=== PATIENT | female | born 1965 | race Caucasian/White ===

== ENCOUNTER 2021-08-10 10:17 | Outpatient (REF) | payer BC, SELFPAY ==
[2021-08-10 11:13] LABS: MANUAL DIFF FLAG NO
[2021-08-10 11:19] LABS: Basophils Absolute Auto 0.1 X10*3/uL (0.0-0.2); Eosinophils Absolute Auto 0.1 X10*3/uL (0.0-0.4); Eosinophils Percent Auto 2.4 % (0-4); Hematocrit 43.9 % (37.0-47.0); Hemoglobin 14.4 g/dl (12.0-16.0); Imm Gran Abs Auto 0.01 X10*3/uL (0.00-0.03); Imm Gran Pct Auto 0.2 % (0.0-0.4); Lymphocytes Absolute Auto 1.5 X10*3/uL (1.2-4.9); Mean Corpuscular HGB Conc 32.8 g/dl (31.0-35.0); Mean Corpuscular Hemoglobin 31.8 pg (27.0-33.0); Mean Corpuscular Volume 96.9 fL (80.0-98.0); Mean Platelet Volume 8.6 fL (9.4-12.3); Monocytes Absolute Auto 0.5 X10*3/uL (0.1-1.2); Monocytes Percent Auto 9.9 % (2-11); Neutrophils Absolute Auto 2.8 x10*3/uL (2.0-8.3); Neutrophils Percent Auto 55.5 % (45-73); Platelet Count 260 X10*3/uL (160-400); Red Blood Count 4.53 X10*6/uL (4.20-5.50); Red Cell Distribution Width 12.6 % (11.0-16.0)
[2021-08-10 12:21] LABS: Erythrocyte Sedimentation Rate 7 MM/HR (0-20)
[2021-08-12 18:22] LABS: IgA 145 mg/dL (47-310); IgG 743 mg/dL (600-1640); IgM 77 mg/dL (50-300)
== END 2021-08-10 10:18 | disposition home or self-care (01) ==
LOC: HO.LAB 10:17
PROVIDERS: PCP Internal Medicine; Visit Provider Hospitalist
DX: J44.9 Chronic obstructive pulmonary disease, unspecified (principal); F17.210 Nicotine dependence, cigarettes, uncomplicated; Z85.3 Personal history of malignant neoplasm of breast; Z01.82 Encounter for allergy testing
CPT/HCPCS: 36415; 82784; 82785; 85025; 85652; 86003

== ENCOUNTER 2021-09-14 13:50 | Outpatient (REF) | payer BC, SELFPAY ==
--- NOTE | 2021-09-14 15:15 | PFT_ITS ---
FLOWS: FEV1 55% of predicted at 1.42 L. FVC 97% of predicted at 3.14 L. FEV1 to FVC ratio of 0.45. Positive bronchodilator response. LUNG VOLUMES: Total lung capacity 122% of predicted at 5.80 L. Residual volume 171% of predicted at 3.02 L. Slow vital capacity 92% of predicted at 2.78 L. Expiratory reserve volume 129% of predicted at 1.16 L. Diffusion capacity is moderately decreased. IMPRESSION: Moderate obstructive ventilatory defect with positive bronchodilator response. Increased total lung capacity suggests hyperinflation. Increased residual volume suggests air trapping. Decreased diffusion capacity suggests emphysema. MD JESS Kamara/MODL / [id number]
== END 2021-09-14 13:51 | disposition home or self-care (01) ==
LOC: HO.RESP 13:50
PROVIDERS: PCP Internal Medicine; Visit Provider Hospitalist
DX: J44.9 Chronic obstructive pulmonary disease, unspecified (principal); R06.00 Dyspnea, unspecified; F17.200 Nicotine dependence, unspecified, uncomplicated
CPT/HCPCS: 94060; 94727; 94729

== ENCOUNTER 2021-09-18 15:02 | Outpatient (REF) | payer BC, SELFPAY ==
--- NOTE | ~2021-09-18 | CT_ITS ---
EXAMINATION: CT CHEST SCREENING CLINICAL INFORMATION: Smoker, 37 pack years. COMPARISON: None. TECHNIQUE: Multidetector volumetric CT imaging of the chest is performed without contrast using low dose technique. Additional 2D coronal and sagittal reformatted images and axial 3D maximum intensity projection (MIP) images are generated on the CT workstation. This CT examination was performed using dose optimization techniques as appropriate, variously including the following: *Automated exposure control *Adjustment of mA and/or kV according to patient size (this includes techniques or standardized protocols for targeted exams where dose is matched to indication/reason for exam; i.e. extremities or head) *Use of iterative reconstruction technique DLP: 34 mGy-cm. FINDINGS: LUNGS: The lungs are hyperinflated without acute process. There is a 2 mm nodule right upper lobe anterior segment image 61/6, 5 mm ground-glass nodule/density right upper lobe anterior medial segment. There are focal atelectatic changes in the lingula. Minimal atelectatic changes are seen in the lingula. MEDIASTINUM: The heart size is normal. The great vessels are normal caliber. Central trachea and the bronchi are widely patent. No abnormal size mediastinal or hilar lymph nodes seen. There is no pericardial effusion. PLEURA: There is no pleural effusion. No pleural mass or thickening. AXILLA: There are surgical sutures in the right axilla from previous intervention. Small lymph nodes are seen in the left axilla. UPPER ABDOMEN: Visualized liver, spleen, pancreas and bilateral adrenal glands are markable. There is tumor stone in the upper pole right kidney. OSSEOUS STRUCTURES: No lytic or sclerotic process seen. CT/CT lung screening IMPRESSION: Small 2 mm nodule right upper lobe and 5 mm ground-glass nodule right upper lobe could be atelectasis. ASSESSMENT: Lung-RADS category 2: Benign. RECOMMENDATION: Low-dose annual CT chest exam.
== END 2021-09-18 15:03 | disposition home or self-care (01) ==
LOC: HO.CT 15:02
PROVIDERS: PCP Internal Medicine; Visit Provider Physician Assistant Medical
DX: Z12.2 Encounter for screening for malignant neoplasm of respiratory organs (principal); F17.210 Nicotine dependence, cigarettes, uncomplicated
CPT/HCPCS: 71271; G0296

== ENCOUNTER → 2021-09-28 13:43 | Outpatient (BNVA) | payer BC, SELFPAY | PROVIDERS: PCP Internal Medicine; Visit Provider Hospitalist | DX: J44.9 Chronic obstructive pulmonary disease, unspecified (principal) ==

== ENCOUNTER → 2022-02-11 10:27 | Outpatient (BNVA) | payer BC, SELFPAY | PROVIDERS: PCP Internal Medicine; Visit Provider Hospitalist | DX: J44.1 Chronic obstructive pulmonary disease with (acute) exacerbation (principal); R91.8 Other nonspecific abnormal finding of lung field; U07.1 COVID-19 | CPT/HCPCS: 94618 ==

== ENCOUNTER → 2022-04-21 08:51 | Outpatient (BNVA) | payer BC, SELFPAY | PROVIDERS: PCP Internal Medicine; Visit Provider Hospitalist | DX: J44.9 Chronic obstructive pulmonary disease, unspecified (principal); R91.8 Other nonspecific abnormal finding of lung field | CPT/HCPCS: 94618 ==

== ENCOUNTER 2022-04-29 08:51 | Outpatient (REF) | payer BC, SELFPAY ==
--- NOTE | ~2022-04-29 | CT_ITS ---
EXAMINATION: CT CHEST WITHOUT CONTRAST CLINICAL INFORMATION: Abnormal lung findings. COMPARISON: None TECHNIQUE: Multidetector volumetric CT imaging of the chest was done. Axial MIP volume rendering provided. Sagittal and coronal reformatted images were obtained. This CT examination was performed using dose optimization techniques as appropriate, variously including the following: *Automated exposure control *Adjustment of mA and/or kV according to patient size (this includes techniques or standardized protocols for targeted exams where dose is matched to indication/reason for exam; i.e. 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 LUNGS: There is centrilobular emphysema with ill-defined opacities right lung apex, axial image 75/6, 85/6, 87/6, 97/6. 2 mm nodular density right upper lobe, image 75/6. 5 mm nodule right upper lobe, axial image 133/6. A few ill-defined opacities in both upper lobes, axial image 144/6. A stellate-appearing 6 mm nodules right lower lobe superior segment, images 140/6 and 146/6. Subpleural reticular stranding right upper lobe, image , and several subcentimeter nodules in the lower lobes. There is bronchial wall thickening without bronchiectasis in both lower lobes. No acute consolidation seen. Mild atelectatic changes are seen in both lung bases MEDIASTINUM: The thyroid lobes are symmetric and normal. The central trachea and the bronchi are widely patent. Heart size and the great vessels are normal caliber. No pericardial effusion seen. No abnormal size mediastinal or hilar lymph nodes. CORONARY ARTERY CALCIFICATION: None visualized on this study. PLEURA: There is no pleural effusion. No pleural mass or thickening. AXILLA: Small shotty lymph nodes seen in bilateral axilla with surgical cheyenne in the right axilla from previous intervention. UPPER ABDOMEN: Visualized liver, spleen are unremarkable. There is solitary 4 mm radiopaque calculi, upper pole right kidney. OSSEOUS STRUCTURES: No aggressive lytic or sclerotic process seen. CT/CT chest wo IV con IMPRESSION: 1. Centrilobular emphysema with ill-defined opacities in both upper lobes and several nodules in the lower lobes. There is bronchial wall thickening without bronchiectasis in both lower lobes. Findings are suggestive of inflammatory or infectious etiology. There are at least 2 stellate-appearing nodules in the right lower lobe superior segment. In addition, there are several additional ill-defined nodules and densities in both upper lobes and superior segment of right lower lobe in addition to subcentimeter nodules. Several ill-defined bilateral upper lobe densities and 2 stellate nodules in the right upper lobe have developed in the interim compared to 09/18/2021 CT chest exam. Inflammatory or infectious etiologies are suspected suspected. 2. No abnormal mediastinal or axillary lymph nodes seen. 3. Nonobstructive 4 mm radiopaque calculi upper pole right kidney. Fleischner guidelines were followed.
== END 2022-04-29 08:52 | disposition home or self-care (01) ==
LOC: HO.CT 08:51
PROVIDERS: PCP Internal Medicine; Visit Provider Hospitalist
DX: R91.8 Other nonspecific abnormal finding of lung field (principal)
CPT/HCPCS: 71250

== ENCOUNTER → 2022-07-12 09:32 | Outpatient (REF) | payer BC, SELFPAY ==
--- NOTE | 2022-07-12 10:13 | ECG_ITS ---
Test Reason : copd Blood Pressure : / mmHG Vent. Rate : 059 BPM Atrial Rate : 059 BPM P-R Int : 144 ms QRS Dur : 100 ms QT Int : 428 ms P-R-T Axes : 077 076 073 degrees QTc Int : 423 ms Sinus bradycardia Possible Left atrial enlargement Incomplete right bundle branch block Minimal voltage criteria for LVH, may be normal variant ( Erich product ) Borderline ECG No previous ECGs available Referred By: Luis Cloud Electronically Signed By:KATHLEEN ALARCON MD
== END ==
LOC: HO.CARD 09:32
PROVIDERS: PCP Internal Medicine; Visit Provider Hospitalist
DX: J44.9 Chronic obstructive pulmonary disease, unspecified (principal); K21.9 Gastro-esophageal reflux disease without esophagitis
CPT/HCPCS: 93005

== ENCOUNTER 2022-09-23 07:23 | Outpatient (REF) | payer BC, SELFPAY ==
--- NOTE | ~2022-09-23 | CT_ITS ---
EXAMINATION: CT CHEST WITHOUT CONTRAST CLINICAL INFORMATION: Pulmonary nodule. Abnormal lung findings. COMPARISON: CT chest 04/29/2022. TECHNIQUE: Multidetector volumetric CT imaging of the chest was done. Axial MIP volume rendering provided. Sagittal and coronal reformatted images were obtained. This CT examination was performed using dose optimization techniques as appropriate, variously including the following: *Automated exposure control *Adjustment of mA and/or kV according to patient size (this includes techniques or standardized protocols for targeted exams where dose is matched to indication/reason for exam; i.e. 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 LUNGS: There is centrilobular emphysema with bilateral apical pleural thickening and parenchymal scarring. There are small pulmonary nodules. A 3 mm nodule right lung apex image 100/5, stable. Previously seen ill-defined opacities right lung apex have resolved. Previously visualized ill-defined parenchymal opacities in both upper lobes anterior segment have resolved as well. There is fine subpleural reticular interstitial thickening right upper lobe anterior segment, stable. No acute consolidation or mass seen. There is a 3 mm nodule left lower lobe axial image 546/5. There is intrabronchiolar 2 mm nodule/debris right middle lobe axial image 33/3. 2 mm calcified nodule is seen left lower lobe axial image 556/5. MEDIASTINUM: The thyroid lobes are symmetric and normal. The central trachea and the bronchi are widely patent. Heart size and the great vessels are normal caliber. There is no pericardial effusion. No abnormal-sized mediastinal or hilar lymph nodes seen. CORONARY ARTERY CALCIFICATION: None visualized on this study. PLEURA: There is no pleural effusion. No pleural mass or thickening. AXILLA: Small shotty lymph nodes are seen in bilateral axilla. There are small cheyenne in the right axilla likely from lymph node dissection. UPPER ABDOMEN: Visualized liver appears unremarkable. Punctate stones in the upper pole right kidney. Spleen, adrenal glands unremarkable. OSSEOUS STRUCTURES: Unremarkable. CT/CT chest wo IV con IMPRESSION: 1. Centrilobular emphysema with bilateral apical pleural thickening and parenchymal scarring. 2. Previously seen ill-defined parenchymal opacities in both upper lobes have resolved. 3. There are small pulmonary nodules measuring 3 mm and less in size. There is a 2 mm intrabronchiolar nodule/debris in the right middle lobe. 4. No abnormal mediastinal or axillary lymph nodes seen. 5. Punctate nonobstructive stones upper pole right kidney. 6. Lung-RADS category 2: Benign. Fleischner guidelines were followed.
== END 2022-09-23 07:24 | disposition home or self-care (01) ==
LOC: HO.CT 07:23
PROVIDERS: PCP Internal Medicine; Visit Provider Hospitalist
DX: R91.8 Other nonspecific abnormal finding of lung field (principal)
CPT/HCPCS: 71250

== ENCOUNTER → 2022-10-05 14:49 | Outpatient (BNVA) | payer BC, SELFPAY | PROVIDERS: PCP Internal Medicine; Visit Provider Nurse Practitioner Family ==

== ENCOUNTER → 2022-10-18 09:50 | Outpatient (BNVA) | payer BC, SELFPAY | PROVIDERS: PCP Internal Medicine; Visit Provider Hospitalist | DX: J44.9 Chronic obstructive pulmonary disease, unspecified (principal); K21.9 Gastro-esophageal reflux disease without esophagitis ==

== ENCOUNTER 2023-02-01 09:35 | Outpatient (REF) | payer BC, SELFPAY | END 2023-02-01 09:36 | disposition home or self-care (01) | LOC: HO.RESP 09:35 | PROVIDERS: PCP Internal Medicine; Visit Provider Hospitalist | DX: J44.9 Chronic obstructive pulmonary disease, unspecified (principal) ==

== ENCOUNTER 2023-03-07 10:03 | Outpatient (AMB) | payer BC, SELFPAY ==
[2023-03-07 10:09] VITALS: BP 128/64; PULSE 67; O2SAT 96; BMI 17.9
--- NOTE | 2023-03-07 10:09 | MHC.OFFVIS ---
Intake Vital Signs 03/07/23 10:09 Height 5 ft 2 in Weight 98 lb BMI 17.9 BP 128/64 Blood Pressure Location Lt brachial Position Sitting Pulse 67 Pulse Source Pulse Oximeter Pulse Oximetry (%) 96 Oxygen Delivery Method Room Air Intake Visit Reasons: copd Dandy Tender Required: No Allergies diazepam [From Valium] Allergy (Severe, Verified 03/07/23 10:11) Hallucinations HPI HPI Comments History of Present Illness Details The patient is a 57-year-old woman current smoker with a history of breast cancer many years ago and also family history positive for lung cancer. The patient is developing worsening cough and shortness of breath. She has been on Trelegy inhaler with partial improvement of the symptoms. She does have a productive cough. Moderate severity. She feels the albuterol is not working. On further questioning she does states that she had asthma as a child. Patient also had allergies. Will assess for a potential asthma phenotype which may respond better to that therapy. However, she understands that she also needs to quit smoking. Will go ahead and refer her to the lung cancer screening program. The patient is interested in quitting however she knows she is going to be very hard for her. She has had bad reactions to medications in the past. This point the patient is willing to start bupropion in addition to starting any controller inhaler hopefully this covered in order for her to provide herself with some nicotine supplementation. Will continue to monitor closely. Will have her undergo pulmonary function studies them follow-up with her after that. 09/29/2021 the patient is here for a pulmonary follow-up visit. Overall she is doing a little better. Still having shortness of breath with activity. Also has a cough. Productive in nature. She still struggling with smoking. She knows she needs to quit. She has been on the Wellbutrin. She is willing to try the nicotine patch along with the Wellbutrin to see if she has a better chance of quitting completely. We did look at her pulmonary function studies still demonstrating moderate to severe COPD. In addition to that significant air trapping. The patient did have a CT scan of the chest to the lung cancer screening program that we also reviewed. She does have multiple pulmonary nodules. She also has significant emphysema. 01/27/2022 the patient has a telehealth visit today. Patient developed COVID-19. Apparently she started developing a worsening cough and chest congestion sometime last week. She did test negative for COVID at that time. She continued having symptoms and finally and son that she tested positive. She went to an urgent care and she was started on Paxlovid. She is on day for now and she is tolerating it fairly well. Although now she is complaining of sinus congestion with postnasal drip and also productive cough with white phlegm. She feels like she has a hard time expectorating. She has been using her nebulizer and also her rescue medication regularly. She continues on a maintenance inhalers as well. It is likely the patient's developing exacerbation or COPD due to the viral syndrome. However, she understands that will trying to avoid prednisone while on the antiviral medication. Therefore will have her start doxycycline to treat her for postviral sinusitis and bronchitis. When she completes the packs of it and she still having difficulties she can start the prednisone. She is monitoring closely her oxygen. Her pulse ox does drop to the low 90s with activity. However, quickly comes up which is reassuring. The patient is aware of her oxygen drops to below 90% and persistent that she has to go to the ER. 02/11/2022 the patient is here for pulmonary follow-up visit. The patient has been having shortness of breath and tachycardia after having COVID. She did take the antibiotics to treat for postviral bacterial infection. She was initially evaluated back in the 14 min subsequently went to an urgent care because of worsening symptoms. The patient now has been struggling with her breathing. Therefore we had her undergo a 6 minute walk test. The patient did not qualify for oxygen although she did desaturate down to the low 90s. The patient was very symptomatic. On examination the patient does have some expiratory wheezing and chest tightness. I did recommend that she take a prednisone as prescribed. She should do well in her breathing should improve with prednisone. I did provide her with a letter to that work until she can not to the prednisone course. In meantime she is going to continue with respiratory therapy in continues to nebulized therapy. 04/21/2022 the patient is here for pulmonary follow-up visit. Overall the patient is feeling a little better. She did have brief 6 minutes walk test prior to the visit in the patient no longer qualifies for oxygen. This is very reassuring. Her oxygen levels are indeed better. However she does complaint of chest congestion and mucus production. Her cough is moderate severity. She has partially responded to the inhalers. She is no longer on prednisone. Will go ahead and start her on macrolide suppression therapy. the patient still working on her smoking. Her last CT scan was back in September 2021 demonstrating benign pulmonary nodules. She is scheduled to have a repeat CT scan September 2022. will follow-up in 6 months. 07/12/2022 the patient is here for a pulmonary follow-up visit. The azithromycin has been working for her. Her cough is improved. She would like to continue it for now. She will need to get an EKG. Still having difficulties with smoking. She did try the Wellbutrin although not very successful. The patient was able to be little bit more successful Chantix in the past. She is willing to go back on it. The patient is willing to go back on Chantix. I will send a prescription to the pharmacy. She should start with started pack. She is to watch closely for any will changes specially depression. We did again review her CT scan that she had back in April demonstrating new pulmonary nodules bilaterally ill-defined. The patient will need a repeat CT scan 6 months from that 1. 10/18/2022 the patient is here for pulmonary follow-up visit. She finished a course of prednisone and also doxycycline for bronchitis and COPD exacerbation. She is starting to feel better. Although she is not completely better. She does have a planned trip to [place]. Therefore I will make sure to give her additional prednisone and doxycycline in case her symptoms worsen again. I am hopeful however that in due time her symptoms go back to her baseline. She is using her respiratory medications. His smoking cessation is going well on Chantix. I will send a prescription to the pharmacy at this time. We did review her CT scan of the chest demonstrating stable findings she with stable pulmonary nodules and some degree of emphysema. No significant findings noted. She will have a repeat CT scan in a year's time. She is wondering about the lung volume reduction interventions. I will request PFTs for the next visit in the fall of 2022 to assess her lung volume and air trapping in order to consider her for lung volume reduction interventions. 03/07/2023 the patient is here for pulmonary follow-up visit. Overall patient is doing a little better. Continues use the Trelegy daily. She is back on the azithromycin 3 times a week for chronic bronchitis. Still has some shortness of breath and congestion. Moderate severity. The respiratory therapy has been helpful. She is still struggling with smoking. She is on Chantix. She is trying to cut down further. We did review her recent PFTs. It looks like she still has moderate to severe obstruction. When compared to 2021 there is some tried improvements in both the FEV1 and also decreasing her surgery volumes are less air trapping which is reassuring. [facility] Medical History (Updated 01/27/22 @ 09:13 by Luis Cloud MD) Pulmonary nodules History of breast cancer Personal history of nicotine dependence Asthma-COPD overlap syndrome Surgical History (Updated 09/18/21 @ 14:53 by Gloria Wang PA-C) History of tonsillectomy History of hysteroscopy History of cardiac radiofrequency ablation History of lumpectomy of right breast History of bilateral oophorectomy (~2019) Family History (Updated 09/18/21 @ 15:01 by Gloria Wang PA-C) Sister Lung cancer, Onset Age: 57 Maternal Grandfather Lung cancer Maternal Uncle Lung cancer Social History Patient Tobacco Use Status: Current everyday Tobacco user Tobacco use type: Cigarette Years Smoked: (onset 15, x 40yrs, max 2ppd, mainly 1/2-3/4ppd - 30pyh) Review of Systems Const Denies chills, Denies excessive sweating, Denies fever(s), Denies headache(s) and Denies night sweats Eyes Denies dry eyes, Denies irritation and Denies itchy eyes ENT Reports Normal hearing present and Denies headache(s) Card Denies chest pain, Denies chest pain at rest, Denies chest pain with activity, Denies leg edema and Reports dyspnea on exertion Resp Reports chest congestion, Reports cough, Denies hemoptysis, Denies excessive phlegm production, Denies pain on inspiration, Denies pain with cough, Reports dyspnea on exertion, Denies stridor and Reports wheezing Musc Denies myalgias Neuro Reports Normal hearing present and Denies headache(s) Endo Denies excessive sweating Magdaleno/Lymph Denies lymphadenopathy Aller/Immun Denies itchy eyes, Denies seasonal rhinorrhea and Reports wheezing Physical Exam Vital Signs: Last Vital Signs Pulse 67 03/07/23 10:09 BP 128/64 03/07/23 10:09 Pulse Ox 96 03/07/23 10:09 Oxygen Delivery Method Room Air 03/07/23 10:09 BMI result Body Mass Index 17.9 Const General: alert Neck Neck: Yes normal visual inspection, Yes full ROM and Yes no lymphadenopathy Chest Chest palpation & inspection: normal inspection of the chest Resp Auscultation: no rhonchi, no wheezes and diminished lung sounds Cardio Rate: regular rate Rhythm: regular rhythm Heart sounds: S1 normal heart sound present and S2 normal heart sound present GI Palpation (GI): Soft to palpation and nontender Auscultation: normal bowel sounds Skin General skin exam: rashes and/or lesions noted Neuro Cranial nerves: Yes Normal hearing present Assessment & Plan Assessment & Plan (1) Asthma-COPD overlap syndrome: Code(s): J44.9 - Chronic obstructive pulmonary disease, unspecified (2) Pulmonary nodules: Code(s): R91.8 - Other nonspecific abnormal finding of lung field Plan restart Azithromycin MWF till February and will reassess continue Trelegy inhaler SOHAIL as needed Nebulizer with albuterol as needed Tobacco cessation: on Chantix lung cancer screening program 09/2023 follow-up in 4-6 months Medications: New azithromycin Take 1 tablet on Tuesday/Tuesday/Tuesday 250 mg PO 3XW 28 days 12 tabs 6RF K21.9 - Gastro-esophageal reflux disease without esophagitis Refilled albuterol sulfate 90 mcg/actuation 2 inhalations inhalation Q6H 30 days PRN 18 grams 12RF shortness of breath or wheezing J44.9 - Chronic obstructive pulmonary disease, unspecified varenicline (Chantix) 1 mg PO BID 28 days 56 tabs 4RF [id number] 200-62.5-25 mcg (Trelegy Ellipta) 1 inh inhalation DAILY 30 days 60 ea 12RF Coding Level of Care Code Est Pt Level 4 (87161) Diagnoses Asthma-COPD overlap syndrome J44.9 Pulmonary nodules R91.8 Time Spent (min) 17
== END 2023-03-07 10:35 | disposition home or self-care (01) ==
PROVIDERS: PCP Internal Medicine; Visit Provider Hospitalist
DX: J44.9 Chronic obstructive pulmonary disease, unspecified (principal); R91.8 Other nonspecific abnormal finding of lung field
CPT/HCPCS: 99214

== ENCOUNTER → 2023-03-07 10:03 | Outpatient (BNVA) | payer BC, SELFPAY | PROVIDERS: PCP Internal Medicine; Visit Provider Hospitalist ==

== ENCOUNTER 2023-06-08 09:52 | Outpatient (AMB) | payer BC, SELFPAY ==
[2023-06-08 09:57] VITALS: BP 128/70; PULSE 64; O2SAT 95; BMI 18.5
--- NOTE | 2023-06-08 09:57 | A.OFFVIS_ITS ---
Intake Vital Signs 06/08/23 09:57 Height 5 ft 2 in Weight 101 lb BMI 18.5 BP 128/70 Blood Pressure Location Lt brachial Position Sitting Pulse 64 Pulse Source Pulse Oximeter Pulse Oximetry (%) 95 Oxygen Delivery Method Room Air Intake Visit Reasons: copd Search Specialist Required: No Allergies diazepam [From Valium] Allergy (Severe, Verified 06/08/23 09:59) Hallucinations HPI HPI Comments History of Present Illness Details The patient is a 57-year-old woman current smoker with a history of breast cancer many years ago and also family history positive for lung cancer. The patient is developing worsening cough and shortness of breath. She has been on Trelegy inhaler with partial improvement of the symptoms. She does have a productive cough. Moderate severity. She feels the albuterol is not working. On further questioning she does states that she had asthma as a child. Patient also had allergies. Will assess for a potential asthma phenotype which may respond better to that therapy. However, she understands that she also needs to quit smoking. Will go ahead and refer her to the lung cancer screening program. The patient is interested in quitting however she knows she is going to be very hard for her. She has had bad reactions to medications in the past. This point the patient is willing to start bupropion in addition to starting any controller inhaler hopefully this covered in order for her to provide herself with some nicotine supplementation. Will continue to monitor closely. Will have her undergo pulmonary function studies them follow-up with her after that. 09/29/2021 the patient is here for a pulmonary follow-up visit. Overall she is doing a little better. Still having shortness of breath with activity. Also has a cough. Productive in nature. She still struggling with smoking. She knows she needs to quit. She has been on the Wellbutrin. She is willing to try the nicotine patch along with the Wellbutrin to see if she has a better chance of quitting completely. We did look at her pulmonary function studies still demonstrating moderate to severe COPD. In addition to that significant air trapping. The patient did have a CT scan of the chest to the lung cancer screening program that we also reviewed. She does have multiple pulmonary nodules. She also has significant emphysema. 01/27/2022 the patient has a telehealth v isit today. Patient developed COVID-19. Apparently she started developing a worsening cough and chest congestion sometime last week. She did test negative for COVID at that time. She continued having symptoms and finally and son that she tested positive. She went to an urgent care and she was started on Paxlovid. She is on day for now and she is tolerating it fairly well. Although now she is complaining of sinus congestion with postnasal drip and also productive cough with white phlegm. She feels like she has a hard time expectorating. She has been using her nebulizer and also her rescue medication regularly. She continues on a maintenance inhalers as well. It is likely the patient's developing exacerbation or COPD due to the viral syndrome. However, she understands that will trying to avoid prednisone while on the antiviral medication. Therefore will have her start doxycycline to treat her for postviral sinusitis and bronchitis. When she completes the packs of it and she still having difficulties she can start the prednisone. She is monitoring closely her oxygen. Her pulse ox does drop to the low 90s with activity. However, quickly comes up which is reassuring. The patient is aware of her oxygen drops to below 90% and persistent that she has to go to the ER. 02/11/2022 the patient is here for pulmo arnoly follow-up visit. The patient has been having shortness of breath and tachycardia after having COVID. She did take the antibiotics to treat for postviral bacterial infection. She was initially evaluated back in the 14 min subsequently went to an urgent care because of worsening symptoms. The patient now has been struggling with her breathing. Therefore we had her undergo a 6 minute walk test. The patient did not qualify for oxygen although she did desaturate down to the low 90s. The patient was very symptomatic. On examination the patient does have some expiratory wheezing and chest tightness. I did recommend that she take a prednisone as prescribed. She should do well in her breathing should improve with prednisone. I did provide her with a letter to that work until she can not to the prednisone course. In meantime she is going to continue with respiratory therapy in continues to nebulized therapy. 04/21/2022 the patient is here for pulmonary follow-up visit. Overall the patient is feeling a little better. She did have brief 6 minutes walk test prior to the visit in the patient no longer qualifies for oxygen. This is very reassuring. Her oxygen levels are indeed better. However she does complaint of chest congestion and mucus production. Her cough is moderate severity. She has partially responded to the inhalers. She is no longer on prednisone. Will go ahead and start her on macrolide suppression therapy. the patient still working on her smoking. Her last CT scan was back in September 2021 demonstrating benign pulmonary nodules. She is scheduled to have a repeat CT scan September 2022. will follow-up in 6 months. 07/12/2022 the patient is here for a pulm onary follow-up visit. The azithromycin has been working for her. Her cough is improved. She would like to continue it for now. She will need to get an EKG. Still having difficulties with smoking. She did try the Wellbutrin although not very successful. The patient was able to be little bit more successful Chantix in the past. She is willing to go back on it. The patient is willing to go back on Chantix. I will send a prescription to the pharmacy. She should start with started pack. She is to watch closely for any will changes specially depression. We did again review her CT scan that she had back in April demonstrating new pulmonary nodules bilaterally ill-defined. The patient will need a repeat CT scan 6 months from that 1. 10/18/2022 the patient is here for pulmona ry follow-up visit. She finished a course of prednisone and also doxycycline for bronchitis and COPD exacerbation. She is starting to feel better. Although she is not completely better. She does have a planned trip to [place]. Therefore I will make sure to give her additional prednisone and doxycycline in case her symptoms worsen again. I am hopeful however that in due time her symptoms go back to her baseline. She is using her respiratory medications. His smoking cessation is going well on Chantix. I will send a prescription to the pharmacy at this time. We did review her CT scan of the chest demonstrating stable findings she with stable pulmonary nodules and some degree of emphysema. No significant findings noted. She will have a repeat CT scan in a year's time. She is wondering about the lung volume reduction interventions. I will request PFTs for the next visit in the fall of 2022 to assess her lung volume and air trapping in order to consider her for lung volume reduction interventions. 03/07/2023 the patient is here for pulmo naraman follow-up visit. Overall patient is doing a little better. Continues use the Trelegy daily. She is back on the azithromycin 3 times a week for chronic bronchitis. Still has some shortness of breath and congestion. Moderate severity. The respiratory therapy has been helpful. She is still struggling with smoking. She is on Chantix. She is trying to cut down further. We did review her recent PFTs. It looks like she still has moderate to severe obstruction. When compared to 2021 there is some tried improvements in both the FEV1 and also decreasing her surgery volumes are less air trapping which is reassuring. 06/08/2023 the patient is here for a pulm onary follow-up visit. She has had wor sening respiratory symptoms for the last few weeks. She had a viral syndrome and after that she started developing a productive cough. She continues on the azithromycin but does not seem to be very helpful. She is also noticed increased wheezing. She has been using her respiratory inhalers more often. The patient unfortunately continues to smoke cigarettes. She was not Chantix but she has been on and off. We talked about the importance for her to quit smoking altogether. In addition to that she is participating in the lung cancer screening program. Next CT scans going to be sometime in the spring of 2023. If the patient is no better she will call the office for further evaluation likely and chest x-ray. [facility] Medical History (Updated 01/27/22 @ 09:13 by Luis Cloud MD) Pulmonary nodules History of breast cancer Personal history of nicotine dependence Asthma-COPD overlap syndrome Surgical History (Updated 09/18/21 @ 14:53 by Gloria Wang PA-C) History of tonsillectomy History of hysteroscopy History of cardiac radiofrequency ablation History of lumpectomy of right breast History of bilateral oophorectomy (~2019) Family History (Updated 09/18/21 @ 15:01 by Gloria Wang PA-C) Sister Lung cancer, Onset Age: 57 Maternal Grandfather Lung cancer Maternal Uncle Lung cancer Social History Patient Tobacco Use Status: Current everyday Tobacco user Tobacco use type: Cigarette Years Smoked: (onset 15, x 40yrs, max 2ppd, mainly 1/2-3/4ppd - 30pyh) Review of Systems Const Denies chills, Denies excessive sweating, Denies fever(s), Denies headache(s) and Denies night sweats Eyes Denies dry eyes, Denies irritation and Denies itchy eyes ENT Reports Normal hearing present and Denies headache(s) Card Denies chest pain, Denies chest pain at rest, Denies chest pain with activity, Denies leg edema and Reports dyspnea on exertion Resp Reports change in phlegm color, Reports chest congestion, Reports cough, Denies hemoptysis, Denies excessive phlegm production, Denies pain on inspiration, Denies pain with cough, Reports dyspnea on exertion, Denies stridor and Reports wheezing Musc Denies myalgias Neuro Reports Normal hearing present and Denies headache(s) Endo Denies excessive sweating Magdaleno/Lymph Denies lymphadenopathy Aller/Immun Denies itchy eyes, Denies seasonal rhinorrhea and Reports wheezing Physical Exam Vital Signs: Last Vital Signs Pulse 64 06/08/23 09:57 BP 128/70 06/08/23 09:57 Pulse Ox 95 06/08/23 09:57 Oxygen Delivery Method Room Air 06/08/23 09:57 BMI result Body Mass Index 18.5 Const General: alert Neck Neck: Yes normal visual inspection, Yes full ROM and Yes no lymphadenopathy Chest Chest palpation & inspection: normal inspection of the chest Resp Auscultation: rhonchi, wheezes and diminished lung sounds Cardio Rate: regular rate Rhythm: regular rhythm Heart sounds: S1 normal heart sound present and S2 normal heart sound present GI Palpation (GI): Soft to palpation and nontender Auscultation: normal bowel sounds Skin General skin exam: rashes and/or lesions noted Neuro Cranial nerves: Yes Normal hearing present Assessment & Plan Assessment & Plan (1) Asthma-COPD overlap syndrome: Code(s): J44.9 - Chronic obstructive pulmonary disease, unspecified (2) Pulmonary nodules: Code(s): R91.8 - Other nonspecific abnormal finding of lung field Plan hold Azithromycin MWF till February and will reassess Doxy x 10 days Medrol pack pack if pack continue Trelegy inhaler SOHAIL as needed Nebulizer with albuterol as needed Tobacco cessation: on Chantix lung cancer screening program 09/2023 follow-up in 4-6 months Medications: New methylprednisolone (Medrol (Chris)) PO PER PKG DIR 6 days 21 ea 0RF Coding Level of Care Code Est Pt Level 4 (95749) Diagnoses Asthma-COPD overlap syndrome J44.9 Pulmonary nodules R91.8 Time Spent (min) 17
== END 2023-06-08 10:23 | disposition home or self-care (01) ==
PROVIDERS: PCP Internal Medicine; Visit Provider Hospitalist
DX: J44.9 Chronic obstructive pulmonary disease, unspecified (principal); R91.8 Other nonspecific abnormal finding of lung field
CPT/HCPCS: 99214

== ENCOUNTER → 2023-06-08 09:52 | Outpatient (BNVA) | payer BC, SELFPAY | PROVIDERS: PCP Internal Medicine; Visit Provider Hospitalist | DX: J44.9 Chronic obstructive pulmonary disease, unspecified (principal); K21.9 Gastro-esophageal reflux disease without esophagitis ==

== ENCOUNTER 2023-10-11 15:26 | Outpatient (REF) | payer BC, SELFPAY ==
--- NOTE | ~2023-10-11 | CT_ITS ---
EXAMINATION: CT LOW-DOSE SCREENING CHEST WITHOUT CONTRAST CLINICAL INFORMATION: Nicotine dependence, cigarettes, uncomplicated. The patient is a current smoker with a 30 pack-year history of smoking. COMPARISON: Multiple prior CT scans of the chest, the most recent of which is dated 09/23/2022 and the most remote of which is dated 09/18/2021. TECHNIQUE: Multidetector volumetric CT imaging of the chest is performed on a Siemens SOMATOM Perspective scanner without contrast using low dose technique. Additional 2D coronal and sagittal reformatted images and axial 3D maximum intensity projection (MIP) images are generated on the CT workstation. This CT examination was performed using dose optimization techniques as appropriate, variously including the following: *Automated exposure control *Adjustment of mA and/or kV according to patient size (this includes techniques or standardized protocols for targeted exams where dose is matched to indication/reason for exam; i.e. extremities or head) *Use of iterative reconstruction technique TOTAL EXAM DLP: 74 mGy-cm. CTDIvol: 1.72 mGy. FINDINGS: PULMONARY NODULES No suspicious pulmonary nodules. The largest single true nodule is in the left lower lobe measuring 4 mm and is unchanged (4:456, compare prior 5:544). There is also a 3 mm left upper lobe lung nodule is unchanged (4:125, compare prior 5:154). [place] images of all have been saved. No new, increasing sized or suspicious nodule is seen. There are some pulmonary opacities seen that represent some mural thickening of underlying cysts (for example, right apex 4:61, left apex 4:54 and superior segment right lower lobe 4:228). These findings are unchanged compared to prior. LUNGS: Lungs bilaterally symmetrically expanded. There are marked emphysematous changes seen along with mild diffuse bronchial thickening. No effusion or pneumothorax. Central airways patent. MEDIASTINUM: No mediastinal, hilar or axillary adenopathy or free fluid collection. CORONARY ARTERY CALCIFICATION: None visualized on this study. THYROID GLAND: Unremarkable to the extent seen. CARDIOVASCULAR STRUCTURES: Aortic and heart size normal. No pericardial effusion. CHEST WALL/AXILLA: Unremarkable. UPPER ABDOMEN: There is right sided nephrolithiasis with the largest stone measuring 3 mm in size at 75 Hounsfield units. This has increased in size from prior and is 4.6 cm from the posterior axillary line Included portions of the solid organs in the upper abdomen otherwise unremarkable on noncontrast imaging. OSSEOUS STRUCTURES: No suspicious focal findings. CT/CT lung screening IMPRESSION: 1. No evidence of pulmonary malignancy. 2. Marked emphysema. 3. Right-sided nephrolithiasis. 4. Incidental findings (S category): No significant new incidental findings. ASSESSMENT: Lung-RADS Category 2: Benign appearance or behavior of nodules. RECOMMENDATION: Continued routine annual low-dose CT lung screening in 1 year is recommended. An order for CT CHEST LOW DOSE CANCER SCREENING ([id number]) can be placed.
== END 2023-10-11 15:27 | disposition home or self-care (01) ==
LOC: HO.CT 15:26
PROVIDERS: PCP Internal Medicine; Visit Provider Physician Assistant Medical
DX: Z12.2 Encounter for screening for malignant neoplasm of respiratory organs (principal); F17.210 Nicotine dependence, cigarettes, uncomplicated
CPT/HCPCS: 71271

== ENCOUNTER 2023-10-19 10:24 | Outpatient (AMB) | payer BC, SELFPAY ==
--- NOTE | 2023-10-19 10:28 | A.OFFVIS_ITS ---
Vital Signs 10/19/23 10:29 Height 5 ft 2 in Weight 97 lb 0.054 oz BMI 17.7 BP 124/60 Blood Pressure Location Lt brachial Position Sitting Pulse 86 Pulse Source Pulse Oximeter Pulse Oximetry (%) 94 Oxygen Delivery Method Room Air Intake Visit Reasons: copd Alfalfa Dehydrator Operator Required: No Allergies diazepam [From Valium] Allergy (Severe, Verified 10/19/23 10:32) Hallucinations HPI Comments Details: The patient is a 57-year-old woman current smoker with a history of breast cancer many years ago and also family history positive for lung cancer. The patient is developing worsening cough and shortness of breath. She has been on Trelegy inhaler with partial improvement of the symptoms. She does have a productive cough. Moderate severity. She feels the albuterol is not working. On further questioning she does states that she had asthma as a child. Patient also had allergies. Will assess for a potential asthma phenotype which may respond better to that therapy. However, she understands that she also needs to quit smoking. Will go ahead and refer her to the lung cancer screening program. The patient is interested in quitting however she knows she is going to be very hard for her. She has had bad reactions to medications in the past. This point the patient is willing to start bupropion in addition to starting any controller inhaler hopefully this covered in order for her to provide herself with some nicotine supplementation. Will continue to monitor closely. Will have her [facility] pulmonary function studies them follow-up with her after that. 03/07/2023 the patient is here for pulmonary follow-up visit. Overall patient is doing a little better. Continues use the Trelegy daily. She is back on the azithromycin 3 times a week for chronic bronchitis. Still has some shortness of breath and congestion. Moderate severity. The respiratory therapy has been helpful. She is still struggling with smoking. She is on Chantix. She is trying to cut down further. We did review her recent PFTs. It looks like she still has moderate to severe obstruction. When compared to 2021 there is some tried improvements in both the FEV1 and also decreasing her surgery volumes are less air trapping which is reassuring. 06/08/2023 the patient is here for a pulmonary follow-up visit. She has had worsening respiratory symptoms for the last few weeks. She had a viral syndrome and after that she started developing a productive cough. She continues on the azithromycin but does not seem to be very helpful. She is also noticed increased wheezing. She has been using her respiratory inhalers more often. The patient unfortunately continues to smoke cigarettes. She was not Chantix but she has been on and off. We talked about the importance for her to quit smoking altogether. In addition to that she is participating in the lung cancer screening program. Next CT scans going to be sometime in the spring. If the patient is no better she will call the office for further evaluation likely and chest x-ray. 10/19/2023 the patient is here for a pulmonary follow-up visit. The patient has been struggling with cough and shortness breath. Seems to be getting worse. She has been on a course of doxycycline and had been on azithromycin before. She does have chronic bronchitis due to her COPD. Moderate severity. She did have a lung cancer screening program CT scan. I did review with her seems that the nodules are stable although she does have extensive emphysema. The patient still smoking however. She is on Chantix and is helping partially. Still smoking a half a pack a day. Her also smokes that makes it very hard for her to quit altogether. She is struggling work because she has missing a lot of work because of respiratory symptoms. I did fill out her [facility] papers. [facility] Medical History (Updated 09/06/23 @ 08:54 by Gloria Wang PA-C) History of breast cancer Asthma-COPD overlap syndrome Pulmonary nodules Nicotine dependence, cigarettes, uncomplicated Surgical History (Updated 09/18/21 @ 14:53 by Gloria Wang PA-C) History of tonsillectomy History of hysteroscopy History of cardiac radiofrequency ablation History of lumpectomy of right breast History of bilateral oophorectomy (~2019) Family History (Updated 09/18/21 @ 15:01 by Gloria Wang PA-C) Sister Lung cancer, Onset Age: 57 Maternal Grandfather Lung cancer Maternal Uncle Lung cancer Social History Patient Tobacco Use Status: Current everyday Tobacco user Tobacco use type: Cigarette Years Smoked: (onset 15, x 40yrs, max 2ppd, mainly 1/2-3/4ppd - 30pyh) Review of Systems Const Denies chills, Denies excessive sweating, Denies fever(s), Denies headache(s) and Denies night sweats Eyes Denies dry eyes, Denies irritation and Denies itchy eyes ENT Reports Normal hearing present and Denies headache(s) Card Denies chest pain, Denies chest pain at rest, Denies chest pain with activity, Denies leg edema and Reports dyspnea on exertion Resp Reports chest congestion, Reports cough, Denies hemoptysis, Denies excessive phlegm production, Denies pain on inspiration, Denies pain with cough, Reports dyspnea on exertion, Denies stridor and Reports wheezing Musc Denies myalgias Neuro Reports Normal hearing present and Denies headache(s) Endo Denies excessive sweating Magdaleno/Lymph Denies lymphadenopathy Aller/Immun Denies itchy eyes, Denies seasonal rhinorrhea and Reports wheezing Physical Exam Vital Signs: Last Vital Signs Pulse 86 10/19/23 10:29 BP 124/60 10/19/23 10:29 Pulse Ox 94 10/19/23 10:29 Oxygen Delivery Method Room Air 10/19/23 10:29 BMI result Body Mass Index 17.7 Const General: alert Neck Neck: Yes normal visual inspection, Yes full ROM and Yes no lymphadenopathy Chest Chest palpation & inspection: normal inspection of the chest Resp Auscultation: rhonchi, wheezes and diminished lung sounds Cardio Rate: regular rate Rhythm: regular rhythm Heart sounds: S1 normal heart sound present and S2 normal heart sound present GI Palpation (GI): Soft to palpation and nontender Auscultation: normal bowel sounds Skin General skin exam: rashes and/or lesions noted Neuro Cranial nerves: Yes Normal hearing present Assessment & Plan Assessment & Plan (1) Asthma-COPD overlap syndrome: Code(s): J44.9 - Chronic obstructive pulmonary disease, unspecified Category: Medical (2) Pulmonary nodules: Code(s): R91.8 - Other nonspecific abnormal finding of lung field Category: Medical Plan Azithromycin MWF continue Trelegy inhaler SOHAIL as needed Nebulizer with albuterol as needed Tobacco cessation: on Offline [employer] lung cancer screening program 09/2023 awaiting final read bloodwork follow-up in 4-6 months Orders: Orders Alpha 1 Anti-trypsin Today J44.9 - Chronic obstructive pulmonary disease, unspecified Venous Blood Gas Today J44.9 - Chronic obstructive pulmonary disease, unspecified Erythrocyte Sedimentation Rate Today J44.9 - Chronic obstructive pulmonary disease, unspecified Basic Metabolic Panel Today J44.9 - Chronic obstructive pulmonary disease, unspecified Complete Blood Count Auto Diff Today J44.9 - Chronic obstructive pulmonary disease, unspecified Coding Level of Care Code Est Pt Level 4 (04932) Diagnoses Asthma-COPD overlap syndrome J44.9 Pulmonary nodules R91.8 Time Spent (min) 18
[2023-10-19 10:29] VITALS: BP 124/60; PULSE 86; O2SAT 94; BMI 17.7
== END 2023-10-19 11:00 | disposition home or self-care (01) ==
PROVIDERS: PCP Internal Medicine; Visit Provider Hospitalist
DX: J44.9 Chronic obstructive pulmonary disease, unspecified (principal); R91.8 Other nonspecific abnormal finding of lung field
CPT/HCPCS: 99214

== ENCOUNTER → 2023-10-19 10:24 | Outpatient (BNVA) | payer BC, SELFPAY | PROVIDERS: PCP Internal Medicine; Visit Provider Hospitalist | DX: J44.9 Chronic obstructive pulmonary disease, unspecified (principal); K21.9 Gastro-esophageal reflux disease without esophagitis ==

== ENCOUNTER 2024-04-25 09:58 | Outpatient (AMB) | payer BC, SELFPAY ==
[2024-04-25 10:03] VITALS: BP 104/64; PULSE 101; O2SAT 97; BMI 18.1
--- NOTE | 2024-04-25 10:03 | MHC.OFFVIS ---
Vital Signs 04/25/24 10:03 Height 5 ft 2 in Weight 99 lb 3.328 oz BMI 18.1 BP 104/64 Blood Pressure Location Lt brachial Position Sitting Pulse 101 H Pulse Oximetry (%) 97 Oxygen Delivery Method Simple Mask Intake Visit Reasons: COPD Case Reviewer Required: No Manager Payroll: Manager Payroll offered & declined Accompanied by: Self / Same As Patient Allergies diazepam [From Valium] Allergy (Severe, Verified 04/25/24 10:06) Hallucinations Medication List - Last Reconciled 04/25/24 by Estela Batista LPN albuterol sulfate 90 mcg/actuation (Ventolin HFA) 2 inhalations inhalation Q6H PRN 30 days anastrozole 1 mg PO DAILY azithromycin 250 mg PO 3XW 28 days cholecalciferol (vitamin D3) 50 mcg PO DAILY fluticasone propionate 50 mcg/actuation 2 sprays intranasal DAILY jtzrivawjki-mjljoppoj-hemjeyhz 200-62.5-25 mcg (Trelegy Ellipta) 1 inh inhalation DAILY 30 days ipratropium-albuterol 0.5 mg-3 mg(2.5 mg base)/3 mL 3 mL inhalation BID 30 days nebulizers As directed varenicline (Chantix) 1 mg PO BID 28 days HPI Comments Details: The patient is a 58-year-old woman current smoker with a history of breast cancer many years ago and also family history positive for lung cancer. The patient is developing worsening cough and shortness of breath. She has been on Trelegy inhaler with partial improvement of the symptoms. She does have a productive cough. Moderate severity. She feels the albuterol is not working. On further questioning she does states that she had asthma as a child. Patient also had allergies. Will assess for a potential asthma phenotype which may respond better to that therapy. However, she understands that she also needs to quit smoking. Will go ahead and refer her to the lung cancer screening program. The patient is interested in quitting however she knows she is going to be very hard for her. She has had bad reactions to medications in the past. This point the patient is willing to start bupropion in addition to starting any controller inhaler hopefully this covered in order for her to provide herself with some nicotine supplementation. Will continue to monitor closely. Will have her undergo pulmonary function studies them follow-up with her after that. 03/07/2023 the patient is here for pulmonary follow-up visit. Overall patient is doing a little better. Continues use the Trelegy daily. She is back on the azithromycin 3 times a week for chronic bronchitis. Still has some shortness of breath and congestion. Moderate severity. The respiratory therapy has been helpful. She is still struggling with smoking. She is on Chantix. She is trying to cut down further. We did review her recent PFTs. It looks like she still has moderate to severe obstruction. When compared to 2021 there is some tried improvements in both the FEV1 and also decreasing her surgery volumes are less air trapping which is reassuring. 06/08/2023 the patient is here for a pulmonary follow-up visit. She has had worsening respiratory symptoms for the last few weeks. She had a viral syndrome and after that she started developing a productive cough. She continues on the azithromycin but does not seem to be very helpful. She is also noticed increased wheezing. She has been using her respiratory inhalers more often. The patient unfortunately continues to smoke cigarettes. She was not Chantix but she has been on and off. We talked about the importance for her to quit smoking altogether. In addition to that she is participating in the lung cancer screening program. Next CT scans going to be sometime in the spring. If the patient is no better she will call the office for further evaluation likely and chest x-ray. 10/19/2023 the patient is here for a pulmonary follow-up visit. The patient has been struggling with cough and shortness breath. Seems to be getting worse. She has been on a course of doxycycline and had been on azithromycin before. She does have chronic bronchitis due to her COPD. Moderate severity. She did have a lung cancer screening program CT scan. I did review with her seems that the nodules are stable although she does have extensive emphysema. The patient still smoking however. She is on Chantix and is helping partially. Still smoking a half a pack a day. Her also smokes that makes it very hard for her to quit altogether. She is struggling work because she has missing a lot of work because of respiratory symptoms. I did [place] out her [place] papers. 04/25/2024 the patient is here for she was diagnosed with bladder cancer. She does have a port now will start chemotherapy. Hopefully she can get course of chemotherapy and then have surgery. In the meantime she did have a CT scan of the chest done at [facility] in 05/04/2024. She did bring a copy. I did review with her. . The images were also reviewed. I did compare the images to the once the CT scan she had in 10/03/2023 here. The pulmonary nodules appear to be stable when compared to 2023. She does have moderate degree of emphysema. Also has some evidence of bronchitis and areas of atelectasis. She has developing worsening cough chest congestion. Will go ahead and switch over to doxy for 10-14 days to treat her for bronchitis. If she is no better she will call for further evaluation. She continue with the Trelegy inhaler. She is working on cutting down her smoking. Hopeful that she can quit completely. [facility] Medical History (Updated 04/25/24 @ 19:37 by Luis Cloud MD) Bladder cancer History of breast cancer Asthma-COPD overlap syndrome Pulmonary nodules Nicotine dependence, cigarettes, uncomplicated Surgical History (Updated 09/18/21 @ 14:53 by Gloria Wang PA-C) History of tonsillectomy History of hysteroscopy History of cardiac radiofrequency ablation History of lumpectomy of right breast History of bilateral oophorectomy (~2019) Family History (Updated 09/18/21 @ 15:01 by Gloria Wang PA-C) Sister Lung cancer, Onset Age: 57 Maternal Grandfather Lung cancer Maternal Uncle Lung cancer Social History (Updated 04/25/24 @ 10:08 by Estela Batista LPN) Patient Tobacco Use Status: Current everyday Tobacco user Tobacco use type: Cigarette Cigarettes Per Day: 12 Years Smoked: (onset 15, x 40yrs, max 2ppd, mainly 1/2-3/4ppd - 30pyh) Review of Systems Const Denies chills, Denies excessive sweating, Denies fever(s), Denies headache(s) and Denies night sweats Eyes Denies dry eyes, Denies irritation and Denies itchy eyes ENT Reports Normal hearing present and Denies headache(s) Card Denies chest pain, Denies chest pain at rest, Denies chest pain with activity, Denies leg edema and Reports dyspnea on exertion Resp Reports chest congestion, Reports cough, Denies hemoptysis, Denies excessive phlegm production, Denies pain on inspiration, Denies pain with cough, Reports dyspnea on exertion, Denies stridor and Reports wheezing Reports as per HPI Musc Denies myalgias Neuro Reports Normal hearing present and Denies headache(s) Endo Denies excessive sweating Magdaleno/Lymph Denies lymphadenopathy Aller/Immun Denies itchy eyes, Denies seasonal rhinorrhea and Reports wheezing Physical Exam Vital Signs: Last Vital Signs Pulse 101 H 04/25/24 10:03 BP 104/64 04/25/24 10:03 Pulse Ox 97 04/25/24 10:03 Oxygen Delivery Method Simple Mask 04/25/24 10:03 BMI result Body Mass Index 18.1 Const General: alert Neck Neck: Yes normal visual inspection, Yes full ROM and Yes no lymphadenopathy Chest Chest palpation & inspection: normal inspection of the chest Resp Auscultation: no rhonchi, no wheezes and diminished lung sounds Cardio Rate: regular rate Rhythm: regular rhythm Heart sounds: S1 normal heart sound present and S2 normal heart sound present GI Palpation (GI): Soft to palpation and nontender Auscultation: normal bowel sounds Skin General skin exam: rashes and/or lesions noted Neuro Cranial nerves: Yes Normal hearing present Assessment & Plan Assessment & Plan (1) Asthma-COPD overlap syndrome: Code(s): J44.9 - Chronic obstructive pulmonary disease, unspecified Category: Medical (2) Pulmonary nodules: Code(s): R91.8 - Other nonspecific abnormal finding of lung field Category: Medical (3) Bladder cancer: Code(s): C67.9 - Malignant neoplasm of bladder, unspecified Category: Medical (4) Nicotine dependence, cigarettes, uncomplicated: Comment: (onset 15yo, x 40yrs, mainly 1/2-3/4ppd, max 2ppd for 7yr - 30pyh, +fam hx lung ca) Code(s): F17.210 - Nicotine dependence, cigarettes, uncomplicated Category: Medical Plan Doxycycline continue Trelegy inhaler SOHAIL as needed Nebulizer with albuterol as needed Tobacco cessation: Chantix lung cancer screening program (had a CT chest at [facility] 04/2024) next 04/2025 follow-up in 4-6 months Medications: New doxycycline monohydrate 100 mg PO BID 28 tabs 0RF 14 days Coding Level of Care Code Est Pt Level 4 (47078) Complex EM visit Add On G2211 Diagnoses Asthma-COPD overlap syndrome J44.9 Pulmonary nodules R91.8 Bladder cancer C67.9 Nicotine dependence, cigarettes, uncomplicated F17.210 Time Spent (min) 18
--- OUTSIDE RECORDS SUMMARY | 2024-04-25 23:57 | XMS_ITS | Continuity of Care Document ---
Author Organization [facility] ter Address [address] [place] [id number] Support Name Relationship Address Phone ANGELA GARCIA P P Personal Relationship Unknown Unavailable GARCIA, ANGELA Personal Relationship Unknown Amparo vailable GARCIA, MARK spouse Unknown Unavailable GARCIA, ANGELA Personal Relationship Unknown Amparo vailable GARCIA, ANGELA P P Personal Relationship Unknown Unavailable GARCIA, ANGELA P Personal Relationship Unknown U navbridgerable RADHA, MARK Personal Relationship Unknown Unavai labboby GARCIA, ANGELA P P Personal Relationship Unknown Unavailable GARCIA, ANGELA P Personal Relationship Unknown U navailable GARCIA, ANGELA P Personal Relationship Unknown U navailable GARCIA, ANGELA P P Personal Relationship Unknown Unavailable GARCIA, MARK spouse Unknown Unavailable GARCIA, ANGELA P P Personal Relationship Unknown Unavailable GARCIA, ANGELA P P Personal Relationship Unknown Unavailable SOLA ALEXIS mother Unknown Unavailab boby GARCIA MARK P spouse Unknown Unavailable GARCIA, ANGELA Personal Relationship Unknown Amparo vailable GARCIA, ANGELA P P Personal Relationship Unknown Unavailable GARCIA, ANGELA P P Personal Relationship Unknown Unavailable RADHA, MARIANNA Personal Relationship Unknown Unavai emanuel GARCIA, MARK Personal Relationship Unknown Unavai lable Care Team Providers 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 Role Phone Tobi Griffith MD Primary Care Phys[id number] Date(s): [facility]/19/24 - 04/19/[address] [id number] Discharge Disposition: A-D/C Home Attending Physician: Marshal Oneil MD Admitting Physician: Marshal Oneil MD Referring Physician: Marshal Oneil MD Encounter Type: Disch Daystay Allergies, Adverse Reactions, Alerts Substance Criticality Severity Reaction Reaction Severity Status Valium with high doses(10mgs)-agitation Active Medications albuterol 90 mcg/inh inhalation powder 2 puffs, Inhalation, Every 6 hours, PRN Wheezing/Shortness of Breath, Maintenance, 01/08/24 8:25:00 AM EDT, Partial fill upon patient request if the prescription is for a schedule II opioid drug. Start Date: 01/08/24 Status: Ordered Repeat number: 1 anastrozole 1 mg oral tablet 1 tablet = 1 mg, By Mouth, Daily, # 90 tablet, 3 Refills, Maintenance, 04/03/24 11:32:00 AM EST, Tablet, [id number], Partial fill upon patient request if the prescription is for a schedule IIopioid drug., 155.2, cm, 04/03/24 10:43:00 EST, Height, 43.2, kg, 04/03/24 10:43:00 EST, Dry Weight Start Date: 04/03/24 Status: Ordered Quantity: 90.0 Unit: tablet Repeat number: 4 Trelegy Ellipta 200 mcg-62.5 mcg-25 mcg/inh inhalation powder 1 puffs, Inhalation, Daily, Maintenance, 01/08/24 8:24:00 AM EDT, Partial fill upon patient request if the prescription is for a schedule II opioid drug. Start Date: 01/08/24 Status: Ordered Repeat number: 1 Problem List Condition Confirmation Course Effective Dates Status Health St atus Informant Atrial fibrillation Confirmed Active COPD - Chronic obstructive pulmonary disease Confirmed Active Breast cancer Confirmed Active Tobacco abuse Confirmed Active Underweight Confirmed Active Results Radiology Reports * Exam Date Time Procedure Performing Provider Status 04/19/24 9:55 AM IR End of Case Report Aut h (Verified) IR End of Case Report * Exam Date Time Procedure Performing Provider Status 04/19/24 9:55 AM IR Portacath Insertion Au th (Verified) Notes: (IR Portacath Insertion) Reason For Exam: Other: IR Portacath Insertion Patient: ANGELA GARCIA Study Date: 04/19/2024 Performing: Violet Steen MD Referring: : 1965 Age: 58 Gender: FEMALE Pre-procedure diagnosis and Indication: 58-year-old female with past medical history of atrial fibrillation, history of breast cancer (2017 status post right lumpectomy in 2018 and whole breast radiation therapy which was completed in 2018 currently on anastrozole), COPD and tobacco use who developed gross hematuria in February 2023. She has undergone TURBT in January 2024 for poorly differentiated urothelial carcinoma with glandular differentiation. She has been evaluated by hematology oncology for chemotherapy and is referred to interventional radiology for chest port placement. PROCEDURE: The procedure, risks, including technical failure, bleeding, infection, vessel injury, blood clot, arrhythmia, and alternatives were discussed with the patient and all questions were answered. Written informed consent obtained. Accompanying paperwork was verified for accuracy. Directed history and physical exam performed prior to the procedure. Medication reconciliation performed by nursing personnel. Procedure was performed using a cap, sterile gown, sterile gloves, a large sterile sheet, hand hygiene and 2% chlorhexidine for cutaneous antisepsis. The patient was brought to the angiography suite, positioned supine on the table and secured with arm boards. The right neck and chest were prepped and draped in usual sterile fashion. A critical pause was performed with assisting personnel just prior to the procedure with the patient's identity confirmed using 2 identifiers, confirming site and side. Conscious Sedation was administered under my supervision, with cardiorespiratory monitoring performed by independent and qualified nursing personnel. Ultrasound was used to demonstrate a patent and appropriate puncture site of the right internal jugular vein, and an image was obtained and stored. 5 ml of 1% lidocaine was used for local anesthesia. A small skin incision was made with careful blunt dissection into the subcutaneous tissues. The vein was then punctured under real-time sonographic guidance. A wire was advanced in to the IVC and a peel-away sheath was placed over the wire. Attention was then turned to the anterior chest wall where the planned port pocket site and subcutaneous tunnel was anesthetized with 15 ml of 1% lidocaine with epinephrine. A 2 cm incision was then made at the upper margin of the port pocket and using careful blunt dissection, the incision was opened and the port pocket was made. The port was assembled and flushed. The port was placed within the port pocket and a tunneler was then used to tunnel the catheter from the port pocket to the neck incision site, pulling the catheter through the subcutaneous tract. The exposed end of the catheter was then trimmed to the appropriate length ( 28 cm ) and advanced through the peel-away sheath under direct fluoroscopic guidance. The peel away sheath was then removed. The catheter tip is at the superior cavoatrial junction. The port was tested with good flow and blood return. The port was then flushed with heparin per protocol. The positioning of the port was again confirmed under fluoroscopy. The port pocket incision was closed with 2-0 Vicryl sutures and tissue adhesive. The small neck incision was closed with tissue adhesive. Sterile dressings were applied. The port was not left accessed. The patient tolerated the procedure well with no immediate complication. Catheter used: Medcomp DIGNITY PORT 6.6F - Qty: 1 Each Part #: [id number] The sterile field was maintained throughout the procedure and patient tolerated the procedure well with no complications of the procedure estimated blood loss was minimal Specimens/samples: no specimens or samples were sent for this procedure Patient transferred to, Pre / Post Procedure Unit Post procedure instructions sent in envelope with the patient Impression: Ultrasound and fluoroscopically guided placement of a power injectable chest port via the right internal jugular vein with the catheter tip terminating at the SVC/RA junction. Port available for immediate use. Access the port using sterile technique including use of sterile gloves, alcohol-based skin preparation and face mask/ shield.Should port malfunction develop please contact this service directly rather than having a diagnostic study performed elsewhere. This is not necessary. Fluoroscopy time and dose Total Fluoro Time: 0.4 mins Total dose 1 mGy Total DAP 13.4 - ?Gy/m2 No contrast was used for this procedure Local Anesthetic Lidocaine 1% 4 ml's SQ Lidocaine 1% w/ 1:100,000 epinephrine 17 ml's SQ Moderate sedation was provided From 10:27:09 to 10:51:14 Moderate Sedation Agent Dose Route Time By Fentanyl 50 mcg IV 10:27:06 LD Versed 1 mg IV 10:27:09 LD Signed By Violet Steen MD On 04/19/2024 4:24:00 PM Violet Steen MD Dictated By: Violet Steen MD Dictated Date/Time: 04/19/24 9:55 am Reviewed By: Violet Steen MD Signed By: Violet Steen MD Signed Date/Time: 04/19/24 9:55 am Transcribed By: MERLENE Transcribed Date/Time: 04/19/24 9:55 am Vital Signs Most recent to oldest [Reference Range]: 1 2 3 Height 155.2 cm (04/19/24 8:51 AM) 155.2 cm (04/19/24 8:50 AM) 155.2 cm (04/19/24 8:47 AM) Weight 43.5 kg (04/19/24 8:50 AM) 43.5 kg (04/19/24 8:47 AM) Oxygen Saturation [94-100 %] 99 % (04/19/24 8:51 AM) Pulse Rate [55-90 bpm] 86 bpm (04/19/24 8:51 AM) Blood Pressure [90-138/55-84 mm Hg] 114/69mm Hg (04/19/24 8:51 AM) Respiratory Rate [16-30 br/min] 18 br/min (04/19/24 8:51 AM) Temperature [96.8-100.4 DegF] 98.1 DegF (04/19/24 8:51 AM) Mode of Delivery (Oxygen) Room air (04/19/24 8:51 AM) Dry Weight 43.5 kg (04/19/24 8:47 AM) Social History Social History Type Response Smoking Status 10 or more cigarette s (1/2 pack or more)/day in last 30 days; Interested in cessation: No; Patient wants NRT during admission No entered on: 04/03/24 Sex Female Sex Representation Female (finding) Hospital Progress note * Nish Rico RN: SIGN, MODIFY, SIGN, MODIFY, PERFORM, SIGN, VERIFY Event Display: Progress Note Hospital Authored Date: Patient: ANGELA GARCIA Age: 58 years Sex: Female : 1965 Associated Diagnoses: None Author: Nish Rico RN Findings Evaluation Patient arrived to unit, VSS. #22 IV inserted in right AC, labs drawn. Medical daystay assessment, home med review, and pre-procedure checklist completed. Resting comfortably awaiting procedure. . * Nish Rico RN: PERFORM Event Display: Progress Note Hospital Authored Date: Returned from procedure. VSS. Dressings to right neck and right chest CDI. No signs or symptoms of bleeding or hematoma. Will continue to monitor. * Nish Rico RN: PERFORM Event Display: Progress Note Hospital Authored Date: [id number] No change to dressings, still CDI. No signs or symptoms of bleeding or hematoma. VSS. IV d/c'd. Discharge instructions reviewed and signed. Questions asked and answered. Discharged from unit via wheelchair. Note * Nish Rico RN: PERFORM Event Display: Discharge/Transfer Note Hospital Authored Date: [id number] Nursing Discharge Note Entered On: 04/19/2024 11:50 EST Performed On: 04/19/2024 11:50 EST by Nish Rico RN Nursing Discharge Note 2 Discharge Time : 04/19/2024 11:50 EST Discharge Level of Care at Discharge : Home/Assisted/Foster Care Patient Left Unit Via : Wheelchair Patient Accompanied Off Unit with : Responsible adult DC Instructions Provided & Signed by Pt : Yes Patient Understands D/C Instructions : Yes Patient Instructions Discharge Signed : Yes Did Pt have Specialty Bed or Wound Vac : No Nish Rico RN - 04/19/2024 11:50 EST Patient Care team information Care Team Personnel Name: Ann Badillo Position: [facility] Onco RN Member Role: Primary Care Nurse Name: Claudette Waldron Position: S Onco RN Member Role: Primary Care Nurse Name: Tboi Griffith MD Position: [facility] Physician - Primary Care Member Role: PCP Address: [address] [place] [address] Telecom: Name: Marcelina Beyer RN Position: S RN Member Role: Primary Care Nurse Care Team Related Persons Name: SOLA ALEXIS Name: MARK GARCIA Insurance Providers Guarantor name: ANGELA GARCIA Health Plan Information #: 1 Payer: [employer] Member Number: [id number] Policy Number: NA Group Number: [id number] Health Plan Information #: 2 Payer: [employer] Member Number: [id number] Policy Number: NA Group Number: NA
--- OUTSIDE RECORDS SUMMARY | 2024-04-25 23:57 | XMS_ITS | Continuity of Care Document ---
Author Organization [facility] ter Address [address] [place] [id number]- Support Name Relationship Address Phone RADHA ROSSANA P P Personal Relationship Unknown Unavailable BECK, ROSSANA Personal Relationship Unknown Amparo vailable BECK, MARK spouse Unknown Unavailable BECK, ROSSANA Personal Relationship Unknown Amparo vailable BECK, ROSSANA P P Personal Relationship Unknown Unavailable BECK, ROSSANA P Personal Relationship Unknown U navailable BECK, MARK Personal Relationship Unknown Unavai lable BECK, ROSSANA P P Personal Relationship Unknown Unavailable BECK, ROSSANA P Personal Relationship Unknown U navailable BECK, ROSSANA P Personal Relationship Unknown U navailable BECK, ROSSANA P P Personal Relationship Unknown Unavailable BECK, MARK spouse Unknown Unavailable BECK, ROSSANA P P Personal Relationship Unknown Unavailable BECK, ROSSANA P P Personal Relationship Unknown Unavailable SOLA ALEXIS mother Unknown Unavailab boby BECK, MARK P spouse Unknown Unavailable BECK, ROSSANA Personal Relationship Unknown Amparo vailable BECK, ROSSANA P P Personal Relationship Unknown Unavailable BECK, ROSSANA P P Personal Relationship Unknown Unavailable RADHA, MARIANNA Personal Relationship Unknown Unavai labboby BECK, MARK Personal Relationship Unknown Unavai lable Care Team Providers Care Manager Economic Name Role Phone Tobi Griffith MD Primary Care Physician Encounter 04/21/24 - 04/22/[address] [address] Attending Physician: Not on Staff, Attending MD Referring Physician: Not on Staff, Referring MD Encounter Type: [facility]RI Allergies, Adverse Reactions, Alerts Substance Criticality Severity [...] List Condition Confirmation Course Effective Dates Status [facility] Informant Atrial fibrillation Confirmed Active COPD - Chronic obstructive pulmonary disease Confirmed Active Breast cancer Confirmed Active Tobacco abuse Confirmed Active Underweight Confirmed Active Results Radiology Reports * Exam Date Time Procedure Performing Provider Status 04/21/24 1:07 PM MRI Abdomen W+W/O Contrast Auth (Verified) Notes: (MRI Abdomen W+W/O Contrast) Reason For Exam: Liver protocol;Liver protocol RESULT: MRI Abdomen W+W/O Contrast [facility] VISIT NUMBER :[id number] Patient Name: Rossana Beck Date of : 1965 Date of Exam: 04-21-2024 Referring Physician: Marshal Oneil [address] [place], [place] [address] Exam: MR Abdomen (C-/C+) CPT 68153 Room Description: [facility] 3T MR Abdomen (C-/C+) CPT 86393 CLINICAL INDICATION: Liver protocol TECHNIQUE: Multiplanar, multisequence pre and post contrast MRI evaluation of the abdomen was performed. 9 cc of Dotarem gadolinium administered intravenously. 3-D rotating maximum intensity projection MRCP images of the biliary tree were generated on the same workstation with concurrent physician supervision. COMPARISON: Multiple prior studies, most recently chest CT dated January 18, 2024. FINDINGS: LOWER THORAX: No pleural or pericardial effusion. LIVER: Normal contour and size. Normal parenchymal enhancement. No suspicious lesion. A few small T2 hyperintense nonenhancing simple cysts are noted. Ovoid region of decreased early postcontrast enhancement in the anterior superficial aspect of hepatic segment 4 spanning up to 2.4 x 1.3 cm in greatest dimension (series 1002 image 15), without correlate on precontrast imaging and subtle hypoattenuation on the initial postcontrast phase but no clear correlate on on more delayed imaging. There is a small central vessel in this region (series 1002 image 16), suggesting a perfusional variant, potentially related to vein of Sappey drainage GALLBLADDER: Tiny gallbladder polyp requires no dedicated follow-up (series 5 image 31).. BILE DUCTS: No biliary ductal dilatation. SPLEEN: Normal. PANCREAS: A few small cystic foci are noted in the pancreas, the largest in the tail measuring up to 5 and 6 mm (series 5 images 14 and 15). No pancreatic ductal dilatation. ADRENAL GLANDS: No nodules. KIDNEYS: No hydronephrosis. Kidneys enhance symmetrically. No suspicious mass. STOMACH/UPPER GI TRACT: Stomach and visualized abdominal bowel normal in caliber. PERITONEUM AND RETROPERITONEUM: No loculated fluid collection or peritoneal mass. PELVIS: Partially imaged wall thickening and enhancement involving the left posterior aspect of the bladder at the edge of the eouak-so-zwen measuring up to 2.9 cm (series 11 image 50), not definitely changed from prior MRI urogram from March 2024 on limited evaluation. LYMPH NODES: No lymphadenopathy. VESSELS: Abdominal aorta is nonaneurysmal. Hepatic, portal and splenic veins patent. Visualized inferior vena cava unremarkable. Mildly narrowed aortomesenteric interval with narrowed appearance of the left renal vein on multiple images, with retroaortic left renal vein component also appears compressed between the aorta and spine. ABDOMINAL WALL: Unremarkable. BONES: Sacral Tarlov cysts and thoracic perineural cysts are noted.. IMPRESSION: 1. Liver abnormality seen on prior CT likely represents a transient perfusional variant, potentially related to the vein of Sappey. No suspicious liver lesion. 2. Several small cystic foci in the pancreas measuring up to 6 mm without specific suspicious features, statistically sidebranch intraductal papillary mucinous neoplasms. Follow-up MRI/MRCP in one year is recommended according to current national guidelines. 3. Partially imaged bladder mass at the edge of the qysaq-ui-ujbl, not definitely changed from prior imaging. Electronically Signed By: Dennis Smith MD Dictated By: Not on Staff , OUMOU RAMÍREZ Dictated Date/Time: 04/21/24 7:42 pm Reviewed By: Not on Staff , OUMOU RAMÍREZ Signed By: Not on Staff , OUMOU RAMÍREZ Signed Date/Time: 04/21/24 7:42 pm Transcribed By: EVA Transcribed Date/Time: 04/21/24 7:42 pm Social History Social History Type Response Smoking Status 10 or more cigarette s (1/2 pack or more)/day in last 30 days; Interested in cessation: No; Patient wants NRT during admission No entered on: 04/03/24 Sex Female Sex Representation Female (finding) Patient Care team information Care Team Personnel Name: Ann Badillo Position: [facility] Onco RN Member Role: Primary Care Nurse Name: Claudette Waldron Position: S Onco RN Member Role: Primary Care Nurse Name: Tobi Griffith MD Position: [facility] Physician - Primary Care Member Role: PCP Address: [address] [place] [address] Telecom: Name: Marcelina Beyer RN Position: [facility] RN Member Role: Primary Care Nurse Care Team Related Persons Name: SOLA ALEXIS Name: MARK BECK Insurance Providers Guarantor name: ROSSANA BECK Health Plan Information #: 1 Payer: [employer] Member Number: NA Policy Number: NA Group Number: NA
--- OUTSIDE RECORDS SUMMARY | 2024-04-25 23:57 | XMS_ITS | Continuity of Care Document ---
Author Organization [facility] Address [address] [place] [address]- Support Name Relationship Address Phone ANGELA GARCIA [...] ANGELA P Personal Relationship Unknown U navailable RADHA, MARK spouse Unknown Unavailable GARCIA, ANGELA P P Personal Relationship Unknown Unavailable GARCIA, ANGELA P P Personal Relationship Unknown Unavailable SOLA ALEXIS mother Unknown Unavailab boby GARCIA, MARK P spouse Unknown Unavailable GARCIA, ANGELA Personal Relationship Unknown Amparo vailable GARCIA, ANGELA P P Personal Relationship Unknown Unavailable GARCIA, ANGELA P P Personal Relationship Unknown Unavailable RADHA, MARIANNA Personal Relationship Unknown Unavai emanuel GARCIA, MARK Personal Relationship Unknown Unavai labboby Care Team Providers Care Developer Trading Systems Name Role Phone Gladis RAMÍREZ, Tobi Puckett Primary Care Physician [place] [facility] [place] 03/31/24 [facility] [address] [place] [id number] Encounter Type: Triage Allergies, Adverse Reactions, Alerts Substance Criticality Severity [...] Daily, # 90 tablet, 3 Refills, Maintenance, 03/26/22 11:21:00 AM EST, Tablet, [facility]/pharmacy #[id number], Partial fill upon patient request if the prescription is for a schedule IIopioid drug., 157, cm, 03/26/22 9:16:00 EST, Height, 46.6, kg, 03/26/22 9:16:00 EST, Dry Weight Start Date: 03/26/22 Status: Ordered Quantity: 90.0 Unit: tablet Repeat [...] Tobacco abuse Confirmed Active Underweight Confirmed Active Social History Social History Type Response Smoking Status 10 or more cigarette s (1/2 pack or more)/day in last 30 days entered on: 01/07/24 Sex Female Sex Representation Female (finding) Patient Care team information Care Team Personnel Name: Ann Badillo Position: [facility] Onco RN Member Role: Primary Care Nurse Name: Claudette Waldron Position: S Onco RN Member Role: Primary Care Nurse Name: Tobi Griffith MD Position: [facility] Physician - Primary Care Member Role: PCP Address: [address] [place] [address] Telecom: Name: Marcelina Beyer RN Position: S RN Member Role: Primary Care Nurse Care Team Related Persons Name: SOLA ALEXIS Name: MARK GARCIA Insurance Providers Guarantor name: ANGELA GARCIA Health Plan Information #: 1 Payer: [employer] Member Number: NA Policy Number: NA Group Number: NA
--- OUTSIDE RECORDS SUMMARY | 2024-04-25 23:57 | XMS_ITS | Continuity of Care Document ---
Author Organization [facility] Address [address] [place] [address]- Care Team Providers Care Fabric Finisher Name Role Phone Tobi Griffith MD Primary Care Physician Encounter [facility] [place] 09/21/23 - 03/26/24 [facility] [address] [place] [id number] Discharge Disposition: A-D/C Home Attending Physician: Brianna Anton MD Admitting Physician: Brianna Anton MD Referring Physician: Tobi Griffith MD Allergies, Adverse Reactions, Alerts Substance Reaction Severity Status Valium with high doses(10mgs)-agitation Active Medications albuterol 90 mcg/inh inhalation powder 2 puffs, Inhalation, Every 6 hours, PRN Wheezing/Shortness of Breath, Maintenance, 01/08/24 8:25:00EDT, Partial fill upon patient request if the prescription is for a schedule II opioid drug. Start Date: 01/08/24 Status: Ordered anastrozole 1 mg oral tablet 1 tablet = 1 mg, By Mouth, Daily, # 90 tablet, 3 Refills, Maintenance, 03/26/22 11:21:00 EST, Tablet, [facility]/pharmacy #[id number], Partial fill upon patient request if the prescription is for a schedule II opioid drug., 157, cm, 03/26/22 9:16:00 EST, Height, 4... Start Date: 03/26/22 Status: Ordered Trelegy Ellipta 200 mcg-62.5 mcg-25 mcg/inh inhalation powder 1 puffs, Inhalation, Daily, Maintenance, 01/08/24 8:24:00 EDT, Partial fill upon patient request ifthe prescription is for a schedule II opioid drug. Start Date: 01/08/24 Status: Ordered Problem List Condition Confirmation Course Effective Dates Status [facility] Informant Atrial fibrillation Confirmed Active COPD - Chronic obstructive pulmonary disease Confirmed Active Breast cancer Confirmed Active Tobacco abuse Confirmed Active Underweight Confirmed Active Social History Social History Type Response Smoking Status 10 or more cigarette s (1/2 pack or more)/day in last 30 days entered on: 01/07/24 Sex Female Patient Care team information Care Team Personnel Name: Ann Badillo Position: [facility] Onco RN Member Role: Primary Care Nurse Name: Claudette Waldron Position: [facility] Onco RN Member Role: Primary Care Nurse Name: Tobi Griffith MD Position: [facility] Physician - Primary Care Member Role: PCP Address: Address: [address] [place] [id number]- Name: Marcelina Beyer RN Position: [facility] RN Member Role: Primary Care Nurse Name: Brianna Anton MD Position: [facility] Physician - Oncology Med Service: Hematology & Oncology Member Role: Admitting Physician Address: Address: [address] [place] [address] [place] [address]- Care Team Related Persons Name: SOLA ALEXIS Name: MARK GARCIA Address: home [address] [place] [id number]
== END 2024-04-25 10:27 | disposition home or self-care (01) ==
PROVIDERS: PCP Internal Medicine; Visit Provider Hospitalist
DX: J44.9 Chronic obstructive pulmonary disease, unspecified (principal); R91.8 Other nonspecific abnormal finding of lung field; C67.9 Malignant neoplasm of bladder, unspecified; F17.210 Nicotine dependence, cigarettes, uncomplicated
CPT/HCPCS: 99214

== ENCOUNTER → 2024-04-25 09:58 | Outpatient (BNVA) | payer BC, SELFPAY | PROVIDERS: PCP Internal Medicine; Visit Provider Hospitalist | DX: J44.9 Chronic obstructive pulmonary disease, unspecified (principal); K21.9 Gastro-esophageal reflux disease without esophagitis ==

== ENCOUNTER 2024-05-25 10:16 | Outpatient (AMB) | payer BC, SELFPAY ==
[2024-05-25 10:20] VITALS: BP 108/64; PULSE 72; O2SAT 97; BMI 18.9
--- NOTE | 2024-05-25 10:20 | MHC.OFFVIS ---
Vital Signs 05/25/24 10:20 Height 5 ft 2 in Weight 103 lb 9.876 oz BMI 18.9 BP 108/64 Blood Pressure Location Rt brachial Position Sitting Pulse 72 Pulse Source Pulse Oximeter Pulse Oximetry (%) 97 Oxygen Delivery Method Room Air Intake Visit Reasons: increased productive cough/shortness of breath Allergies diazepam [From Valium] Allergy (Severe, Verified 05/25/24 10:23) Hallucinations HPI Comments Details: The patient is a 58-year-old woman current smoker with a history of breast cancer many years ago and also family history positive for lung cancer. The patient is developing worsening cough and shortness of breath. She has been on Trelegy inhaler with partial improvement of the symptoms. She does have a productive cough. Moderate severity. She feels the albuterol is not working. On further questioning she does states that she had asthma as a child. Patient also had allergies. Will assess for a potential asthma phenotype which may respond better to that therapy. However, she understands that she also needs to quit smoking. Will go ahead and refer her to the lung cancer screening program. The patient is interested in quitting however she knows she is going to be very hard for her. She has had bad reactions to medications in the past. This point the patient is willing to start bupropion in addition to starting any controller inhaler hopefully this covered in order for her to provide herself with some nicotine supplementation. Will continue to monitor closely. Will have her undergo pulmonary function studies them follow-up with her after that. 03/07/2023 the patient is here for pulmonary follow-up visit. Overall patient is doing a little better. Continues use the Trelegy daily. She is back on the azithromycin 3 times a week for chronic bronchitis. Still has some shortness of breath and congestion. Moderate severity. The respiratory therapy has been helpful. She is still struggling with smoking. She is on Chantix. She is trying to cut down further. We did review her recent PFTs. It looks like she still has moderate to severe obstruction. When compared to 2021 there is some tried improvements in both the FEV1 and also decreasing her surgery volumes are less air trapping which is reassuring. 06/08/2023 the patient is here for a pulmonary follow-up visit. She has had worsening respiratory symptoms for the last few weeks. She had a viral syndrome and after that she started developing a productive cough. She continues on the azithromycin but does not seem to be very helpful. She is also noticed increased wheezing. She has been using her respiratory inhalers more often. The patient unfortunately continues to smoke cigarettes. She was not Chantix but she has been on and off. We talked about the importance for her to quit smoking altogether. In addition to that she is participating in the lung cancer screening program. Next CT scans going to be sometime in the spring. If the patient is no better she will call the office for further evaluation likely and chest x-ray. 10/19/2023 the patient is here for a pulmonary follow-up visit. The patient has been struggling with cough and shortness breath. Seems to be getting worse. She has been on a course of doxycycline and had been on azithromycin before. She does have chronic bronchitis due to her COPD. Moderate severity. She did have a lung cancer screening program CT scan. I did review with her seems that the nodules are stable although she does have extensive emphysema. The patient still smoking however. She is on Chantix and is helping partially. Still smoking a half a pack a day. Her also smokes that makes it very hard for her to quit altogether. She is struggling work because she has missing a lot of work because of respiratory symptoms. I did fill out her [facility] papers. 04/25/2024 the patient is here for she was diagnosed with bladder cancer. She does have a port now will start chemotherapy. Hopefully she can get course of chemotherapy and then have surgery. In the meantime she did have a CT scan of the chest done at [facility] in 05/04/2024. She did bring a copy. I did review with her. . The images were also reviewed. I did compare the images to the once the CT scan she had in 10/03/2023 here. The pulmonary nodules appear to be stable when compared to 2023. She does have moderate degree of emphysema. Also has some evidence of bronchitis and areas of atelectasis. She has developing worsening cough chest congestion. Will go ahead and switch over to doxy for 10-14 days to treat her for bronchitis. If she is no better she will call for further evaluation. She continue with the Trelegy inhaler. She is working on cutting down her smoking. Hopeful that she can quit completely. 05/25/2024 the patient is here for a pulmonary sick visit. Apparently she started developing worsening cough. Congested in nature. Also complaining of some back discomfort especially when coughing. It was initially pendant got a little better. Lkzc-[id number]-[id number] severity. She is congested. No significant crackles on exam. Right now she continues on chemotherapy. Once she completes her chemotherapy she is going to be reassess and likely will have surgery sometime in August. She will continue her respiratory therapy. Will place her on Augmentin. She is going to monitor closely the back discomfort. If it gets worse she will call. She recently had imaging studies in April so will hold off on additional imaging studies unless she does not respond to the Augmentin. Otherwise follow-up in August before surgery. She has any issues again she will call the office. [facility] Medical History (Updated 05/25/24 @ 10:34 by Luis Cloud MD) Bladder cancer History of breast cancer Asthma-COPD overlap syndrome Pulmonary nodules Nicotine dependence, cigarettes, uncomplicated Surgical History (Updated 09/18/21 @ 14:53 by Gloria Wang PA-C) History of tonsillectomy History of hysteroscopy History of cardiac radiofrequency ablation History of lumpectomy of right breast History of bilateral oophorectomy (~2018) Family History (Updated 09/18/21 @ 15:01 by Gloria Wang PA-C) Sister Lung cancer, Onset Age: 57 Maternal Grandfather Lung cancer Maternal Uncle Lung cancer Social History Patient Tobacco Use Status: Current everyday Tobacco user Tobacco use type: Cigarette Cigarettes Per Day: 12 Years Smoked: (onset 15, x 40yrs, max 2ppd, mainly 1/2-3/4ppd - 30pyh) Review of Systems Const Denies chills, Denies excessive sweating, Denies fever(s), Denies headache(s) and Denies night sweats Eyes Denies dry eyes, Denies irritation and Denies itchy eyes ENT Reports Normal hearing present and Denies headache(s) Card Denies chest pain, Denies chest pain at rest, Denies chest pain with activity, Denies leg edema and Reports dyspnea on exertion Resp Reports chest congestion, Reports cough, Denies hemoptysis, Denies excessive phlegm production, Denies pain on inspiration, Denies pain with cough, Reports dyspnea on exertion, Denies stridor and Reports wheezing Reports as per HPI Musc Denies myalgias Neuro Reports Normal hearing present and Denies headache(s) Endo Denies excessive sweating Magdaleno/Lymph Denies lymphadenopathy Aller/Immun Denies itchy eyes, Denies seasonal rhinorrhea and Reports wheezing Physical Exam Vital Signs: Last Vital Signs Pulse 72 05/25/24 10:20 BP 108/64 05/25/24 10:20 Pulse Ox 97 05/25/24 10:20 Oxygen Delivery Method Room Air 05/25/24 10:20 BMI result Body Mass Index 18.9 Const General: alert Neck Neck: Yes normal visual inspection, Yes full ROM and Yes no lymphadenopathy Chest Chest palpation & inspection: normal inspection of the chest Resp Auscultation: no rhonchi, no wheezes and diminished lung sounds Cardio Rate: regular rate Rhythm: regular rhythm Heart sounds: S1 normal heart sound present and S2 normal heart sound present GI Palpation (GI): Soft to palpation and nontender Auscultation: normal bowel sounds Skin General skin exam: rashes and/or lesions noted Neuro Cranial nerves: Yes Normal hearing present Extrem General: No cyanosis and No edema Assessment & Plan Assessment & Plan (1) Asthma-COPD overlap syndrome: Code(s): J44.9 - Chronic obstructive pulmonary disease, unspecified Category: Medical (2) Pulmonary nodules: Code(s): R91.8 - Other nonspecific abnormal finding of lung field Category: Medical (3) Bladder cancer: Code(s): C67.9 - Malignant neoplasm of bladder, unspecified Category: Medical Qualifiers: Bladder location: unspecified site Qualified Code(s): C67.9 - Malignant neoplasm of bladder, unspecified (4) Nicotine dependence, cigarettes, uncomplicated: Comment: (onset 15yo, x 40yrs, mainly 1/2-3/4ppd, max 2ppd for 7yr - 30pyh, +fam hx lung ca) Code(s): F17.210 - Nicotine dependence, cigarettes, uncomplicated Category: Medical Plan start Augmentin start Prednisone taper continue Trelegy inhaler SOHAIL as needed Nebulizer with albuterol as needed Tobacco cessation: [place] lung cancer screening program through [facility] follow-up in 4-6 months Medications: New amoxicillin-pot clavulanate 875-125 mg 1 tab PO BID 20 tabs 0RF 10 days prednisone PO daily; Take 2 tabs daily x 5 days, then 1 tablet daily x 5 days 15 tabs 0RF 10 days Refilled ipratropium-albuterol 0.5 mg-3 mg(2.5 mg base)/3 mL 3 mL inhalation BID 180 mL 11RF 30 days J44.9 - Chronic obstructive pulmonary disease, unspecified Coding Level of Care Code Est Pt Level 4 (76493) Diagnoses Asthma-COPD overlap syndrome J44.9 Pulmonary nodules R91.8 Malignant neoplasm of urinary bladder, unspecified site C67.9 Bladder location: unspecified site Nicotine dependence, cigarettes, uncomplicated F17.210 Time Spent (min) 16
--- OUTSIDE RECORDS SUMMARY | 2024-05-25 10:22 | XMS_ITS | Continuity of Care Document ---
Author Organization [facility] Address [address] [place] [address]- Support Name Relationship Address Phone RADHA ANGELA P P Personal Relationship Unknown Unavailable GARCIA, ANGELA Personal Relationship Unknown Amparo vailable GRACIA, MARK spouse Unknown Unavailable GARCIA, ANGELA Personal Relationship Unknown Amparo vailable GARCIA, ANGELA P P Personal Relationship Unknown Unavailable GARCIA, ANGELA P Personal Relationship Unknown U navailable GARCIA, MARK Personal Relationship Unknown Unavai lable GARCIA, ANGELA P P Personal Relationship Unknown Unavailable GARCIA, ANGELA P Personal Relationship Unknown U navailable GARCIA, ANGELA P Personal Relationship Unknown U navailable GARCIA, ANGELA P P Personal Relationship Unknown Unavailable GARCIA, MARK spouse Unknown Unavailable GARCIA, ANGELA P P Personal Relationship Unknown Unavailable GARCIA, ANGELA P P Personal Relationship Unknown Unavailable SOLA ALEXIS mother Unknown Unavailab le GARCIA, MARK P spouse Unknown Unavailable GARCIA, ANGELA Personal Relationship Unknown Amparo vailable GARCIA, ANGELA P P Personal Relationship Unknown Unavailable GARCIA, ANGLEA P P Personal Relationship Unknown Unavailable GARCIA, DAVJAYSHREE Personal Relationship Unknown Unavai lable RADHA, MARK Personal Relationship Unknown Unavai lable Care Team Providers Care Diamond Polisher Name Role Phone Tobi Griffith MD Primary Care Physician Encounter [facility] Date(s): 04/03/24 - 05/03/24 [facility] [address] [place] [id number] Encounter Type: Triage Allergies, Adverse Reactions, Alerts [...] Refills, Maintenance, 04/03/24 11:32:00 AM EST, Tablet, [facility]/pharmacy #[id number], Partial fill upon patient request if the prescription is for a schedule IIopioid drug., 155.2, cm, 04/03/24 10:43:00 EST, Height, 43.2, kg, 04/03/24 10:43:00 EST, Dry Weight Start Date: 04/03/24 Status: Ordered Quantity: 90.0 Unit: tablet Repeat number: 4 dexamethasone 4 mg oral tablet See Instructions, 2 tabs (8mg) By Mouth once a day for 3 days as directed after chemo, with food, #24 tablet, 0 Refills, Maintenance, 04/23/24 12:53:00 PM EST, [id number], Partial fill upon patient request, 155.2, cm, 04/19/24 8:51:00 EST, Height, 43.5, kg, 04/19/24 8:47:00 EST, Dry Weight Start Date: 04/23/24 Status: Ordered Quantity: 24.0 Unit: tablet Repeat number: 1 lidocaine-prilocaine 2.5%-2.5% topical cream See Instructions, apply small dollop to [facility] 1 hr prior to appt and cover with plastic, #30 Gm, 1 Refills, Maintenance, 04/24/24 11:18:00 AM EST, Cream, [facility]/pharmacy #[id number], Partial fill upon patient request if the prescription is for a schedule II opioid drug., apply small dollop to [facility] 1 hr prior to appt and cover with plastic, 155.2, cm, 04/19/24 8:51:00 EST, Height, 43.5,kg, 04/19/24 8:47:00 EST, Dry Weight Start Date: 04/24/24 Status: Ordered Quantity: 30.0 Unit: g Repeat number: 2 olanzapine 2.5 mg oral tablet 2.5 mg, 1, tablet, By Mouth, Daily at bedtime, May cause drowsiness., # 30 tablet, Refills 2, Tot. Refills 2, Maintenance, 04/23/24 12:56:00 PM EST, Route to Pharmacy Electronically, [facility]/pharmacy #[id number], Partial fill upon patient request if the prescription is for a schedule II opioid drug., 155.2, cm, 04/19/24 8:51:00 EST, Height, 43.5, kg, 04/19/24 8:47:00 EST, Dry Weight Start Date: 04/23/24 Stop Date: 07/22/24 Status: Ordered Quantity: 30.0 Unit: tablet Repeat number: 3 ondansetron 8 mg oral tablet 1 tablet = 8 mg, By Mouth, Every 8 hours, PRN as needed for nausea/vomiting, # 30 tablet, 1 Refills, Maintenance, 04/23/24 12:53:00 PM EST, Tablet, [facility]/pharmacy #[id number], Partial fill upon patient request if the prescription is for a schedule II opioid drug., 155.2, cm, 04/19/24 8:51:00 EST, Height, 43.5, kg, 04/19/24 8:47:00 EST, Dry Weight Start Date: 04/23/24 Status: Ordered Quantity: 30.0 Unit: tablet Repeat number: 2 prochlorperazine 10 mg oral tablet 1 tablet = 10 mg, By Mouth, Every 6 hours, PRN nausea/vomiting, may cause drowsiness, # 30 tablet, 1 Refills, Maintenance, 04/23/24 12:53:00 PM EST, [facility]/pharmacy #[id number], Partial fill upon patient request if the prescription is for a schedule II opioid drug., 155.2, cm, 04/19/24 8:51:00 EST, Height, 43.5, kg, 04/19/24 8:47:00 EST, Dry Weight Start Date: 04/23/24 Status: Ordered Quantity: 30.0 Unit: tablet Repeat number: 2 Trelegy Ellipta 200 mcg-62.5 mcg-25 mcg/inh inhalation [...] Care Team Personnel Name: Ann Badillo Position: [facility] Onco RN Member Role: Primary Care Nurse Name: Claudette Waldron Position: [facility] Onco RN Member Role: Primary Care Nurse Name: Tobi Griffith MD Position: [facility] Physician - Primary Care Member Role: PCP Address: [address] [place] [address] Telecom: Name: Marcelina Beyer RN Position: [facility] RN Member Role: Primary Care Nurse Care Team Related Persons Name: SOLA ALEXIS Name: MARK GARCIA Insurance Providers Guarantor name: ANGELA GARCIA Health Plan Information #: 1 Payer: [facility] E[employer] Member Number: NA Policy Number: NA Group Number: NA
--- OUTSIDE RECORDS SUMMARY | 2024-05-25 10:22 | XMS_ITS | Continuity of Care Document ---
Author Organization [facility] Address [address] [place] [address]- Support Name Relationship Address Phone GARCIA ANGELA P P Personal Relationship Unknown Unavailable [...] Unknown Unavai lable Care Team Providers Care Settlement Technician Name Role Phone Tobi Griffith MD Primary Care Physician Encounter [facility] Date(s): 03/26/24 - 04/25/24 [facility] [address] [place] [id number] Attending Physician: Laura Gan Admitting Physician: Laura Gan Referring Physician: Laura Gan Encounter Type: Triage Allergies, Adverse Reactions, Alerts [...] cream See Instructions, apply small dollop to [facility] 1 hr prior to appt and cover with plastic, #30 Gm, 1 Refills, Maintenance, 04/24/24 11:18:00 AM EST, Cream, [id number], Partial fill upon patient request if the prescription is for a schedule II opioid drug., apply small dollop to [facility] 1 hr prior to appt and cover [...] 12:56:00 PM EST, Route to Pharmacy Electronically, [facility]/pharmacy #[id number], Partial fill upon patient request if [...] Refills, Maintenance, 04/23/24 12:53:00 PM EST, Tablet, [facility]/pharmacy #[id number], Partial fill upon patient request if [...] 1 Refills, Maintenance, 04/23/24 12:53:00 PM EST, [facility]/pharmacy #[id number], Partial fill upon patient request if [...] 04/03/24 Sex Female Sex Representation Female (finding) Laboratory * Event Display: Non BH Lab Results Authored Date: * Event Display: Non BH Lab Results Authored Date: * Event Display: Non BH Lab Results Authored Date: * Event Display: Non BH Lab Results Authored Date: MG Breast Views * Event Display: MM Mammogram Authored Date: Patient Care team information Care Team Personnel Name: Ann Badillo Position: [facility] Onco RN Member Role: Primary Care Nurse Name: Claudette Waldron Position: [facility] Onco RN Member Role: Primary Care Nurse Name: Tobi Griffith MD Position: [facility] Physician - Primary Care Member Role: PCP Address: [address] [place] [address] Telecom: Name: Marcelina Beyer RN Position: [facility] RN Member Role: Primary Care Nurse Care Team Related Persons Name: SOLA ALEXIS Name: MARK GARCIA Insurance Providers Guarantor name: ANGELA GARCIA Health Plan Information #: 1 Payer: [facility] [employer] Member Number: NA Policy Number: NA Group Number: NA
== END 2024-05-25 10:43 | disposition home or self-care (01) ==
PROVIDERS: PCP Internal Medicine; Visit Provider Hospitalist
DX: J44.9 Chronic obstructive pulmonary disease, unspecified (principal); R91.8 Other nonspecific abnormal finding of lung field; C67.9 Malignant neoplasm of bladder, unspecified; F17.210 Nicotine dependence, cigarettes, uncomplicated
CPT/HCPCS: 99214

== ENCOUNTER 2024-06-26 11:17 | Outpatient (REF) | payer BC, SELFPAY | END 2024-06-26 11:18 | disposition home or self-care (01) | LOC: HO.XRAY 11:17 | PROVIDERS: PCP Specialist; Referring Provider Internal Medicine Hematology & Oncology; Visit Provider Hospitalist | DX: J44.1 Chronic obstructive pulmonary disease with (acute) exacerbation (principal) | CPT/HCPCS: 71046 ==

== ENCOUNTER → 2024-06-26 11:24 | Outpatient (BNV) | payer BC, SELFPAY | PROVIDERS: PCP Specialist; Referring Provider Internal Medicine Hematology & Oncology; Visit Provider Radiology Diagnostic Radiology | DX: J44.9 Chronic obstructive pulmonary disease, unspecified (principal) | CPT/HCPCS: 71046 ==

== ENCOUNTER 2024-08-16 09:42 | Outpatient (AMB) | payer BC, SELFPAY ==
--- NOTE | 2024-08-16 09:51 | A.OFFVIS_ITS ---
Vital Signs 08/16/24 09:52 Height 5 ft 2 in Weight 106 lb 14.787 oz BMI 19.6 BP 98/52 L Blood Pressure Location Rt brachial Position Sitting Pulse 96 Pulse Source Pulse Oximeter Pulse Oximetry (%) 96 Oxygen Delivery Method Room Air Intake Visit Reasons: COPD Allergies diazepam [From Valium] Allergy (Severe, Verified 08/16/24 09:55) Hallucinations HPI Comments Details: The patient is a 58-year-old woman current smoker with a history of breast cancer many years ago and also family history positive for lung cancer. The patient is developing worsening cough and shortness of breath. She has been on Trelegy inhaler with partial improvement of the symptoms. She does have a productive cough. Moderate severity. She feels the albuterol is not working. On further questioning she does states that she had asthma as a child. Patient also had allergies. Will assess for a potential asthma phenotype which may respond better to that therapy. However, she understands that she also needs to quit smoking. Will go ahead and refer her to the lung cancer screening program. The patient is interested in quitting however she knows she is going to be very hard for her. She has had bad reactions to medications in the past. This point the patient is willing to start bupropion in addition to starting any controller inhaler hopefully this covered in order for her to provide herself with some nicotine supplementation. Will continue to monitor closely. Will have her undergo pulmonary function studies them follow-up with her after that. 03/07/2023 the patient is here for pulmonary follow-up visit. Overall patient is doing a little better. Continues use the Trelegy daily. She is back on the azithromycin 3 times a week for chronic bronchitis. Still has some shortness of breath and congestion. Moderate severity. The respiratory therapy has been helpful. She is still struggling with smoking. She is on Chantix. She is trying to cut down further. We did review her recent PFTs. It looks like she still has moderate to severe obstruction. When compared to 2021 there is some tried improvements in both the FEV1 and also decreasing her surgery volumes are less air trapping which is reassuring. 06/08/2023 the patient is here for a pulmonary follow-up visit. She has had worsening respiratory symptoms for the last few weeks. She had a viral syndrome and after that she started developing a productive cough. She continues on the azithromycin but does not seem to be very helpful. She is also noticed increased wheezing. She has been using her respiratory inhalers more often. The patient unfortunately continues to smoke cigarettes. She was not Chantix but she has been on and off. We talked about the importance for her to quit smoking altogether. In addition to that she is participating in the lung cancer screening program. Next CT scans going to be sometime in the spring. I f the patient is no better she will call the office for further evaluation likely and chest x-ray. 10/19/2023 the patient is here for a pulmonary follow-up visit. The patient has been struggling with cough and shortness breath. Seems to be getting worse. She has been on a course of doxycycline and had been on azithromycin before. She does have chronic bronchitis due to her COPD. Moderate severity. She did have a lung cancer screening program CT scan. I did review with her seems that the nodules are stable although she does have extensive emphysema. The patient still smoking however. She is on Chantix and is helping partially. Still smoking a half a pack a day. Her also smokes that makes it very hard for her to quit altogether. She is struggling work because she has missing a lot of work because of respiratory symptoms. I did fill out her [facility] papers. 04/25/2024 the patient is here for she was diagnosed with bladder cancer. She does have a port now will start chemotherapy. Hopefully she can get course of chemotherapy and then have surgery. In the meantime she did have a CT scan of the chest done at [facility] in 05/04/2024. She did bring a copy. I did review with her. . The images were also reviewed. I did compare the images to the once the CT scan she had in 10/03/2023 here. The pulmonary nodules appear to be stable when compared to 2023. She does have moderate degree of emphysema. Also has some evidence of bronchitis and areas of atelectasis. She has developing worsening cough chest congestion. Will go ahead and switch over to doxy for 10-14 days to treat her for bronchitis. If she is no better she will call for further evaluation. She continue with the Trelegy inhaler. She is working on cutting down her smoking. Hopeful that she can quit completely. 05/25/2024 the patient is here for a pulmonary sick visit. Apparently she started developing worsening cough. Congested in nature. Also complaining of some back discomfort especially when coughing. It was initially pendant got a little better. [id number]-[id number] severity. She is congested. No significant crackles on exam. Right now she continues on chemotherapy. Once she completes her chemotherapy she is going to be reassess and likely will have surgery sometime in August. She will continue her respiratory therapy. Will place her on Augmentin. She is going to monitor closely the back discomfort. If it gets worse she will call. She recently had imaging studies in April so will hold off on additional imaging studies unless she does not respond to the Augmentin. Otherwise follow-up in August before surgery. She has any issues again she will call the office. 08/16/2024 the patient is here for a pulmonary follow-up visit. Since we spoke she did go to [place] to get her bladder cancer surgery. She did have a urostomy placed. After she was discharged the patient had to go back to the hospital with a small-bowel obstruction apparently. She did improve with conservative measures and she was able to be discharged. She had been without any cigarette smoking for a couple weeks. Unfortunately when she came back she started up again. She wants to try the nicotine patch. I will send to pharmacy. [facility] Medical History (Updated 05/25/24 @ 10:34 by Luis Cloud MD) Bladder cancer History of breast cancer Asthma-COPD overlap syndrome Pulmonary nodules Nicotine dependence, cigarettes, uncomplicated Surgical History (Updated 09/18/21 @ 14:53 by Gloria Wang PA-C) History of tonsillectomy History of hysteroscopy History of cardiac radiofrequency ablation History of lumpectomy of right breast History of bilateral oophorectomy (~2019) Family History (Updated 09/18/21 @ 15:01 by Gloria Wang PA-C) Sister Lung cancer, Onset Age: 57 Maternal Grandfather Lung cancer Maternal Uncle Lung cancer Social History Patient Tobacco Use Status: Current everyday Tobacco user Tobacco use type: Cigarette Cigarettes Per Day: 12 Years Smoked: (onset 15, x 40yrs, max 2ppd, mainly 1/2-3/4ppd - 30pyh) Review of Systems Const Denies chills, Denies excessive sweating, Denies fever(s), Denies headache(s) and Denies night sweats Eyes Denies dry eyes, Denies irritation and Denies itchy eyes ENT Reports Normal hearing present and Denies headache(s) Card Denies chest pain, Denies chest pain at rest, Denies chest pain with activity, Denies leg edema and Reports dyspnea on exertion Resp Reports chest congestion, Reports cough, Denies hemoptysis, Denies excessive phlegm production, Denies pain on inspiration, Denies pain with cough, Reports dyspnea on exertion, Denies stridor and Reports wheezing GI Reports abdominal pain Reports as per HPI Musc Denies myalgias Neuro Reports Normal hearing present and Denies headache(s) Endo Denies excessive sweating Magdaleno/Lymph Denies lymphadenopathy Aller/Immun Denies itchy eyes, Denies seasonal rhinorrhea and Reports wheezing Physical Exam Vital Signs: Last Vital Signs Pulse 96 08/16/24 09:52 BP 98/52 L 08/16/24 09:52 Pulse Ox 96 08/16/24 09:52 Oxygen Delivery Method Room Air 08/16/24 09:52 BMI result Body Mass Index 19.6 Const General: alert Neck Neck: Yes normal visual inspection, Yes full ROM and Yes no lymphadenopathy Chest Chest palpation & inspection: normal inspection of the chest Resp Auscultation: no rhonchi, no wheezes and diminished lung sounds Cardio Rate: regular rate Rhythm: regular rhythm Heart sounds: S1 normal heart sound present and S2 normal heart sound present GI Palpation (GI): Soft to palpation and nontender Auscultation: normal bowel sounds Skin General skin exam: rashes and/or lesions noted Neuro Cranial nerves: Yes Normal hearing present Extrem General: No cyanosis and No edema Assessment & Plan Assessment & Plan (1) Asthma-COPD overlap syndrome: Code(s): J44.9 - Chronic obstructive pulmonary disease, unspecified Category: Medical (2) Pulmonary nodules: Code(s): R91.8 - Other nonspecific abnormal finding of lung field Category: Medical (3) Bladder cancer: Code(s): C67.9 - Malignant neoplasm of bladder, unspecified Category: Medical Qualifiers: Bladder location: unspecified site Qualified Code(s): C67.9 - Malignant neoplasm of bladder, unspecified (4) Nicotine dependence, cigarettes, uncomplicated: Comment: (onset 15yo, x 40yrs, mainly 1/2-3/4ppd, max 2ppd for 7yr - 30pyh, +fam hx lung ca) Code(s): F17.210 - Nicotine dependence, cigarettes, uncomplicated Category: Medical Plan continue Trelegy inhaler SOHAIL as needed Nebulizer with albuterol as needed Tobacco cessation: nicotine patch start Trazodone for sleep lung cancer screening program through [facility] follow-up in 4-6 months Medications: New trazodone 50 mg PO BEDTIME PRN 30 tabs 6RF sleep 30 days nicotine 1 patch transdermal DAILY 28 ea 2RF 28 days Coding Level of Care Code Est Pt Level 4 (03347) Complex EM visit Add On G2211 Diagnoses Asthma-COPD overlap syndrome J44.9 Pulmonary nodules R91.8 Malignant neoplasm of urinary bladder, unspecified site C67.9 Bladder location: unspecified site Nicotine dependence, cigarettes, uncomplicated F17.210 Time Spent (min) 18
[2024-08-16 09:52] VITALS: BP 98/52; PULSE 96; O2SAT 96; BMI 19.6
--- OUTSIDE RECORDS SUMMARY | 2024-08-16 10:12 | XMS_ITS | Encounter Summary ---
Author Organization [facility] Address [address] [place] [address] Care Team Providers Care Intellectual Property Counsel Name Role Phone Tobi Griffith MD Primary Care Provider Unava ilable Encounter Details Date Type Department Care Team Description 06/30/2015 Hospital Medical Records [address] [place] [address] French Brambila MD [address] [place] [address] Social History Tobacco Use Types Packs/Day Years Used Date Smoking Tobacco: Every Day Cigarettes 1 Smokeless Tobacco: Never Alcohol Use Standard Drinks/Week Comments Yes 0 (1 standard drink = 0.6 oz pur e alcohol) occ Sex Assigned at Date Recorded Not on file documented as of this encounter Plan of Treatment Not on file documented as of this encounter Visit Diagnoses Not on filedocumented in this encounter Care Teams Intellectual Property Counsel Relationship Specialty Start Date End Date Tobi Griffith MD PCP - General 07/31/14 documented as of this encounter
--- OUTSIDE RECORDS SUMMARY | 2024-08-16 10:12 | XMS_ITS | Encounter Summary ---
Author Organization [facility] Address [address] [place] [address] Care Team Providers Care Health And Physical Education Teacher Name Role Phone Tobi Griffith MD Primary Care Provider Unava ilable Encounter Details Date Type Department Care Team Description 03/10/2015 Release of Information Medical Records [address] [place] [id number] Abstract, Provider Social History Tobacco Use Types Packs/Day Years [...] on filedocumented in this encounter Care Teams Health And Physical Education Teacher Relationship Specialty Start Date End Date Tobi Griffith MD PCP - General 07/31/14 documented as of this encounter
--- OUTSIDE RECORDS SUMMARY | 2024-08-16 10:12 | XMS_ITS | Encounter Summary ---
Author Organization [facility] Address [address] [place] [address] Care Team Providers Care Ripsawyer Name Role Phone Ami Soriano DO Primary Care Pro vider Unavailable Tobi Griffith MD Primary Care Provider Unava ilable Reason for Visit * Reason Onset Date Comments Migraine 06/20/2014 Encounter Details Date Type Department Care Team Description 06/20/2014 Telephone Adult [address] [address] Ami Soriano DO Migraine Social History Tobacco Use Types Packs/Day Years Used Date Smoking Tobacco: Every Day Cigarettes 1 Alcohol Use Standard Drinks/Week Comments Yes 0 (1 standard drink = 0.6 oz pur e alcohol) occ Sex Assigned at Date Recorded Not on file documented as of this encounter Miscellaneous Notes * Telephone Encounter - Katrina Miller - 07/09/2014 8:40 AM EST Patient spoke to the pharmacist about this issue. * Telephone Encounter - Brynn Bianchi R.N. - 06/20/2014 2:54 PM EST Is there any problem with pt taking OTC tylenol of NSAID with celexa? * Telephone Encounter - Veda Davis - 06/20/2014 11:52 AM EST Symptoms patient is presenting: migrain headache - patient is on CELEXA and would like to know whatshe can take for her headache.. She knows she cannot take ibuprofen. How long has patient had these symptoms?: started this morning PCP: Ami Mcbride Payor: ZINA/PPO POS / Plan: FEP BASIC $25/$35 [place] / Product Type: PPO [id number] documented in this encounter Plan of Treatment Not on file documented as of this encounter Visit Diagnoses Not on filedocumented in this encounter Care Teams Ripsawyer Relationship Specialty Start Date End Date Ami Soriano DO PCP - General Internal Medicine 07/12/13 07/30/14 Tobi Griffith MD PCP - General 07/31/14 documented as of this encounter
--- OUTSIDE RECORDS SUMMARY | 2024-08-16 10:12 | XMS_ITS | Encounter Summary ---
Author Organization [facility] Address [address] [place] [address] Care Team Providers Care Admeasurer Name Role Phone Tobi Griffith MD Primary Care Provider Unava ilable Reason for Referral * Specialist (Routine) - Authorized/Booked Specialty Diagnoses / Procedures Referred By Contac t Referred To Contact Cardiology Diagnoses PSVT (paroxysmal supraventricular tachycardia) (HCC) Shortened [place] interval Procedures REFERRAL TO CARDIOLOGY Alexandro Gonzalez MD [address] [place] [address] External Cardiology Referral ID Status Reason Start Date Expiration Date V isits Requested Visits Authorized SEE REVIEW 08/26/14 Authorized/ Booked 08/14/2014 11/25/2014 1 1 Encounter Details Date Type Department Care Team Description 08/14/2014 Orders Only Cardiology - [address] [address] Alexandro Gonzalez MD PSVT (paroxysmal supraventricular tachycardia) (Primary Dx); Shortened [place] interval Social History Tobacco Use Types Packs/Day Years Used Date Smoking Tobacco: Every Day Cigarettes 1 Smokeless Tobacco: Never Alcohol Use Standard Drinks/Week Comments Yes 0 (1 standard drink = 0.6 oz pur e alcohol) occ Sex Assigned at Date Recorded Not on file documented as of this encounter Plan of Treatment Not on file documented as of this encounter Visit Diagnoses Diagnosis PSVT (paroxysmal supraventricular tachycardia) (HCC)- Primary Paroxysmal supraventricular tachycardia Shortened [place] interval Nonspecific abnormal electrocardiogram (ECG) (EKG) documented in this encounter Care Teams Admeasurer Relationship Specialty Start Date End Date Tobi Griffith MD PCP - General 07/31/14 documented as of this encounter
--- OUTSIDE RECORDS SUMMARY | 2024-08-16 10:12 | XMS_ITS | Clinical Summary ---
Author Organization [facility] it Address [address] [place] [address] Care Team Providers Care Peanut Grader Name Role Phone Tobi Griffith MD Primary Care Provider [phone] Encounters Date Type Department Care Team Description 07/11/2024 Telephone [facility] Cardiology [facility] [address] [place] [address] Tobi Griffith MD Medical Records from Last 3 Months Surgical History Surgery Date Site/Laterality Comments OTHER SURGICAL HISTORY PROCEDURE: LAP, SURG, RADFREQ ABLATION OF UTERINE FIBROID(S), INC INTRAOP GUIDE; COMMENT: removed a part of cervix Medical History Medical History Date Comments Asthma DX:Asthma Family history of breast can cer in sister 08/03/2013 DX:Family history of breast cancer in sister Tobacco use DX:Tobacco use Breast cyst DX:Breast cyst Family History Medical History Relation Name Comments Other: copd Mother back issues Other: cancer of breast Sister 1 half sister, same mother, has ra Relation Name Status Comments Mother Alive Sister 1 Sister 2 Social History Tobacco Use Types Packs/Day Years Used Date Smoking Tobacco: Every Day Cigarettes Smokeless Tobacco: Never Alcohol Use Standard Drinks/Week Comments Yes 0 (1 standard drink = 0.6 oz pur e alcohol) Comments Unknown Sex and Gender Information Value Date Recorded Sex Assigned at Not on file Legal Sex Female 6:54 AM EST Gender Identity Not on file Sexual Orientation Not on file Obstetrics History Plan of Treatment Health Maintenance Due Date Last Done Comments Breast Cancer Screening 1967 COVID-19 Vaccine (#1) 12/12/1972 DTaP,Tdap,and Td Vaccines (1 - Tdap) 12/12/1986 Hepatitis B Vaccines (1 of 3 - 19+ 3-dose series) 12/12/1986 Pneumococcal Vaccine: 50+ Ye ars (1 of 2 - PCV) 12/12/1986 Pneumococcal Vaccine: Pediat rics (0 to 5 Years) and At-Risk Patients (6 to 64 Years) (1 of 2 - PCV) 12/12/1986 Zoster Vaccines (1 of 2) 12/12/1986 Cervical Cancer Screening: P ap Smear 12/12/1988 Colorectal Cancer Screening: Colonoscopy 04/18/2022 Depression Screening 04/18/2022 HIV Screening 04/18/2022 Hepatitis C Screening 04/18/2022 Social Influencers of Health Screening 04/18/2022 Influenza Vaccine (#1) 2024 03/07/2015 HIB Vaccines Aged Out No longer eligi ble based on patient's age to complete this topic HPV Vaccines Aged Out No longer eligi ble based on patient's age to complete this topic Hepatitis A Vaccines Aged Out No long er eligible based on patient's age to complete this topic IPV Vaccines Aged Out No longer eligi ble based on patient's age to complete this topic MMR Vaccines Aged Out No longer eligi ble based on patient's age to complete this topic Meningococcal ACWY Vaccine Aged Out N o longer eligible based on patient's age to complete this topic Meningococcal B Vacine Aged Out No lo nger eligible based on patient's age to complete this topic RSV Immunization Patients Un silverio 20 months Aged Out No longer eligible b ased on patient's age to complete this topic Varicella Vaccines Aged Out No longer eligible based on patient's age to complete this topic Care Teams Peanut Grader Relationship Specialty Start Date End Date Tobi Griffith MD [address] [place] [id number] PCP - General 07/31/14
--- OUTSIDE RECORDS SUMMARY | 2024-08-16 10:12 | XMS_ITS | Encounter Summary ---
Author Organization [facility] Address [address] [place] [address] Care Team Providers Care Online Education Manager Name Role Phone Ami Soriano DO Primary Care Pro vider Unavailable Tobi Griffith MD Primary Care Provider Unava ilable Reason for Visit * Reason Onset Date Comments REFERRAL 07/10/2014 Encounter Details Date Type Department Care Team Description 07/10/2014 Telephone Cardiology - [address] [address] Frida Gambino PA-C REFERRAL Social History Tobacco Use Types Packs/Day Years Used Date Smoking Tobacco: Every Day Cigarettes 1 Alcohol Use Standard Drinks/Week Comments Yes 0 (1 standard drink = 0.6 oz pur e alcohol) occ Sex Assigned at Date Recorded Not on file documented as of this encounter Miscellaneous Notes * Telephone Encounter - Frida Gambino PA-C - 07/10/2014 4:38 PM EST Patient was called and notified to complete labs and that she will be having the ace rmonitor done. Telephone Information: Work Phone Not on file. * Telephone Encounter - Amanda Kemp L.P.N. - 07/10/2014 3:59 PM EST Cardiology has received your referral for this patient. Per our department protocol, for the complaint of palpitations, we require the following to be ordered: holter monitor, CBC and TSH. These orders have been pended for your approval within this encounter. Thank you, Cardiology Department documented in this encounter Plan of Treatment Not on file documented as of this encounter Results * TSH (07/12/2014 2:47 PM EST) TSH 1.64 0.40 - 4.00 mIU/ml 07/12/2014 4:27 PM EST [facility] 07/12/2014 2:47 PM EST 07/12/2014 2:47 PM EST Frida Gambino PA-C LAB Performing Organization Address City/State/[facility] Co de Phone Number [facility] [address] [place] [address] * CBC (AUTO DIFF PLATELET) (07/12/2014 2:47 PM EST) WBC 6.6 4.8 - 10.8 x10-3 07/12/2014 3:09 PM EST [facility] RBC 4.4 3.8 - 4.8 x10-6 07/12/2014 3:09 PM EST [facility] HGB 13.7 11.5 - 16.0 g/dl 07/12/2014 3:09 PM EST [facility] HCT 41.8 35 - 47 % 07/12/2014 3:09 PM EST [facility] MCV 95.7 79 - 98 fl 07/12/2014 3:09 PM EST [facility] MCH 31.4 27 - 32 pg 07/12/2014 3:09 PM EST [facility] MCHC 32.8 32 - 37 g/dl 07/12/2014 3:09 PM EST [facility] RDW 12.6 11 - 15 % 07/12/2014 3:09 PM EST [facility] PLT COUNT 278 130 - 400 x10-3 07/12/2014 3:09 PM EST [facility] MEAN PLATELET VOLUME 9.1 7 - 11 fl 07/12/2014 3:09 PM EST [facility] NEUT % 54.3 41 - 85 % 07/12/2014 3:09 PM EST [facility] LYMPH % 34.0 15 - 48 % 07/12/2014 3:09 PM EST [facility] MONO % 8.8 0 - 12 % 07/12/2014 3:09 PM EST [facility] EOS % 2.3 0 - 5 % 07/12/2014 3:09 PM EST [facility] BASO % 0.6 0 - 2 % 07/12/2014 3:09 PM EST [facility] 07/12/2014 2:47 PM EST 07/12/2014 2:47 PM EST Frida Gambino PA-C LAB [facility] [address] [facility] * ECG MONITOR/24 HRS, REVIEW/INTERP (06/06/2014) Frida Gambino PA-C CARDIOLOGY documented in this encounter Visit Diagnoses Diagnosis Heart palpitations- Primary Palpitations documented in this encounter Care Teams Online Education Manager Relationship Specialty Start Date End Date Ami Soriano DO PCP - General Internal Medicine 07/12/13 07/30/14 Tobi Grfifith MD PCP - General 07/31/14 documented as of this encounter
--- OUTSIDE RECORDS SUMMARY | 2024-08-16 10:12 | XMS_ITS | Encounter Summary ---
Author Organization [facility] Address [address] [place] [address] Care Team Providers Care Vessel Operator Name Role Phone Tobi Griffith MD Primary Care Provider Unava ilable Encounter Details Date Type Department Care Team Description 08/09/2018 Boxcar Weigher Report Medical Records [address] [place] [address] Re[facility] [place] Social History Tobacco Use Types Packs/Day Years [...] on filedocumented in this encounter Care Teams Vessel Operator Relationship Specialty Start Date End Date Tobi Griffith MD PCP - General 07/31/14 documented as of this encounter
--- OUTSIDE RECORDS SUMMARY | 2024-08-16 10:12 | XMS_ITS | Encounter Summary ---
Author Organization [facility] Address [address] [place] [address] Care Team Providers Care Automotive Quality Manager Name Role Phone Tobi Griffith MD Primary Care Provider Blu gillespie Encounter Details Date Type Department Care Team Description 08/27/2015 Landscape Contractor Report Medical Records [address] [place] [address] Audrey Salas, MANAGER [address] [address] Social History Tobacco Use Types Packs/Day Years [...] on filedocumented in this encounter Care Teams Automotive Quality Manager Relationship Specialty Start Date End Date Tobi Griffith MD PCP - General 07/31/14 documented as of this encounter
--- OUTSIDE RECORDS SUMMARY | 2024-08-16 10:12 | XMS_ITS | Encounter Summary ---
Author Organization [facility] Address [address] [place] [address] Care Team Providers Care Youth Associate Name Role Phone Ami Soriano DO Primary Care Pro vider Unavailable Tobi Griffith MD Primary Care Provider Unava ilable Encounter Details Date Type Department Care Team Description 12/04/2013 Orders Only Adult Medicine [address] [address] Ami Soriano DO Heart palpitations (Primary Dx) Social History Tobacco Use Types Packs/Day Years Used Date Smoking Tobacco: Every Day Cigarettes 1 Alcohol Use Standard Drinks/Week Comments Yes 0 (1 standard drink = 0.6 oz pur e alcohol) occ Sex Assigned at Date Recorded Not on file documented as of this encounter Plan of Treatment Not on file documented as of this encounter Results * ECG MONITOR/24 HRS, REVIEW/INTERP (08/09/2014) Ami Gonsalez DO CARDIOLOG Y documented in this encounter Visit Diagnoses Diagnosis Heart palpitations- Primary Palpitations documented in this encounter Care Teams Youth Associate Relationship Specialty Start Date End Date Ami Soriano DO PCP - General Internal Medicine 07/12/13 07/30/14 Tobi Griffith MD PCP - General 07/31/14 documented as of this encounter
--- OUTSIDE RECORDS SUMMARY | 2024-08-16 10:12 | XMS_ITS | Encounter Summary ---
Author Organization [facility] Address [address] [place] [address] Care Team Providers Care Steel Division Supervisor Name Role Phone Ami Soriano DO Primary Care Pro vider Unavailable Tobi Griffith MD Primary Care Provider Unava ilable Encounter Details Date Type Department Care Team Description 07/27/2014 Hospital Medical Records [address] [place] [address] Alexandro Stephens MD [address] [place] [address] Social History Tobacco Use Types Packs/Day Years [...] on filedocumented in this encounter Care Teams Steel Division Supervisor Relationship Specialty Start Date End Date Ami Soriano DO PCP - General Internal Medicine 07/12/13 07/30/14 Tobi Griffith MD PCP - General 07/31/14 documented as of this encounter
== END 2024-08-16 10:27 | disposition home or self-care (01) ==
LOC: HO.HPS 09:42
PROVIDERS: PCP Internal Medicine; Visit Provider Hospitalist
DX: J44.9 Chronic obstructive pulmonary disease, unspecified (principal); R91.8 Other nonspecific abnormal finding of lung field; C67.9 Malignant neoplasm of bladder, unspecified; F17.210 Nicotine dependence, cigarettes, uncomplicated
CPT/HCPCS: 99214

== ENCOUNTER 2024-11-01 13:50 | Outpatient (AMB) | payer BC, SELFPAY ==
[2024-11-01 13:53] VITALS: BP 100/54; PULSE 96; O2SAT 93; BMI 17.1
--- NOTE | 2024-11-01 13:53 | A.OFFVIS_ITS ---
Vital Signs 11/01/24 13:53 Height 5 ft 2 in Weight 93 lb 11.143 oz BMI 17.1 BP 100/54 L Blood Pressure Location Lt brachial Position Sitting Pulse 96 Pulse Source Pulse Oximeter Pulse Oximetry (%) 93 Oxygen Delivery Method Room Air Intake Visit Reasons: Per Dr Cloud Mussel Opener Required: No Accompanied by: Self / Same As Patient Allergies diazepam (From Valium) Allergy (Severe, Verified 11/01/24 13:57) Hallucinations HPI Comments Details: The patient is a 58-year-old woman current smoker with a history of breast cancer many years ago and also family history positive for lung cancer. The patient is developing worsening cough and shortness of breath. She has been on Trelegy inhaler with partial improvement of the symptoms. She does have a productive cough. Moderate severity. She feels the albuterol is not working. On further questioning she does states that she had asthma as a child. Patient also had allergies. Will assess for a potential asthma phenotype which may respond better to that therapy. However, she understands that she also needs to quit smoking. Will go ahead and refer her to the lung cancer screening program. The patient is interested in quitting however she knows she is going to be very hard for her. She has had bad reactions to medications in the past. This point the patient is willing to start bupropion in addition to starting any controller inhaler hopefully this covered in order for her to provide herself with some nicotine supplementation. Will continue to monitor closely. Will have her undergo pulmonary function studies them follow-up with her after that. 03/07/2023 the patient is here for pulmonary follow-up visit. Overall patient is doing a little better. Continues use the Trelegy daily. She is back on the azithromycin 3 times a week for chronic bronchitis. Still has some shortness of breath and congestion. Moderate severity. The respiratory therapy has been helpful. She is still struggling with smoking. She is on Chantix. She is trying to cut down further. We did review her recent PFTs. It looks like she still has moderate to severe obstruction. When compared to 2021 there is some tried improvements in both the FEV1 and also decreasing her surgery volumes are less air trapping which is reassuring. 06/08/2023 the patient is here for a pulmonary follow-up visit. She has had worsening respiratory symptoms for the last few weeks. She had a viral syndrome and after that she started developing a productive cough. She continues on the azithromycin but does not seem to be very helpful. She is also noticed increased wheezing. She has been using her respiratory inhalers more often. The patient unfortunately continues to smoke cigarettes. She was not Chantix but she has been on and off. We talked about the importance for her to quit smoking altogether. In addition to that she is participating in the lung cancer screening program. Next CT scans going to be sometime in the spring. If the patient is no better she will call the office for further evaluation katharina eisenberg and chest x-ray. 10/19/2023 the patient is here for a pulmonary follow-up visit. The patient has been struggling with cough and shortness breath. Seems to be getting worse. She has been on a course of doxycycline and had been on azithromycin before. She does have chronic bronchitis due to her COPD. Moderate severity. She did have a lung cancer screening program CT scan. I did review with her seems that the nodules are stable although she does have extensive emphysema. The patient still smoking however. She is on Chantix and is helping partially. Still smoking a half a pack a day. Her also smokes that makes it very hard for her to quit altogether. She is struggling work because she has missing a lot of work because of respiratory symptoms. I did fill out her [facility] papers. 04/25/2024 the patient is here for she was diagnosed with bladder cancer. She does have a port now will start chemotherapy. Hopefully she can get course of chemotherapy and then have surgery. In the meantime she did have a CT scan of the chest done at [facility] in 05/04/2024. She did bring a copy. I did review with her. . The images were also reviewed. I did compare the images to the once the CT scan she had in 10/03/2023 here. The pulmonary nodules appear to be stable when compared to 2023. She does have moderate degree of emphysema. Also has some evidence of bronchitis and areas of atelectasis. She has developing worsening cough chest congestion. Will go ahead and switch over to doxy for 10-14 days to treat her for bronchitis. If she is no better she will call for further evaluation. She continue with the Trelegy inhaler. She is working on cutting down her smoking. Hopeful that she can quit completely. 05/25/2024 the patient is here for a pulmonary sick visit. Apparently she started developing worsening cough. Congested in nature. Also complaining of some back discomfort especially when coughing. It was initially pendant got a little better. [id number] severity. She is congested. No significant crackles on exam. Right now she continues on chemotherapy. Once she completes her chemotherapy she is going to be reassess and likely will have surgery sometime in August. She will continue her respiratory therapy. Will place her on Augmentin. She is going to monitor closely the back discomfort. If it gets worse she will call. She recently had imaging studies in April so will hold off on additional imaging studies unless she does not respond to the Augmentin. Otherwise follow-up in August before surgery. She has any issues again she will call the office. 08/16/2024 the patient is here for a pulmonary follow-up visit. Since we spoke she did go to [place] to get her bladder cancer surgery. She did have a urostomy placed. After she was discharged the patient had to go back to the hospital with a small-bowel obstruction apparently. She did improve with conservative measures and she was able to be discharged. She had been without any cigarette smoking for a couple weeks. Unfortunately when she came back she started up again. She wants to try the nicotine patch. I will send to pharmacy. 11/01/2024 the patient is here for sick visit. Apparently she started the Keytruda after her having the bladder cancer. Although she started developing adverse effects to the Keytruda and she had to stop it. She developed thyroi ditis and also develop worsening respiratory symptoms. She did have a CTA at [facility] which I personally reviewed. Does have extensive emphysema some small pulmonary nodules but also some ground-glass opacities in the bases suggesting pneumonitis likely from the PDL1 inhibitor. Therefore she is going to stop it altogether. She did have reassuring PET scan and now with a CTA demonstrating no evidence of any malignancy anywhere. So therefore she will talk to her doctors in [place] but for now she is going to hold off on any type of immune therapy. Therefore, will go ahead and put some Solu-Medrol to decrease the inflammation of the lungs. After that she can go on prednisone. She is also complaining of mucus production typically clear in color. She has responded well to azithromycin in the past which is a good anti-inflammatory medication as well. Therefore will start her on azithromycin 3 times a week at least for the next few weeks. During the office visit the patient did have a walking oximetry she did desaturate down to 88% with activity. She was placed on 2 L pulse improving her pulse ox to 94% on 2 L pulse with activity. Therefore she will be started on a POC for activity. I do encourage her to use it 2 L at nighttime as well. Will go ahead and set her up with a local [employer] at this time. I also feel that her placard card and will come back in 4 to 6 weeks to reassess. [facility] Medical History (Updated 11/01/24 @ 23:00 by Luis Cloud MD) Pneumonitis Bladder cancer History of breast cancer Asthma-COPD overlap syndrome Pulmonary nodules Nicotine dependence, cigarettes, uncomplicated Surgical History (Updated 09/18/21 @ 14:53 by Gloria Wang PA-C) History of tonsillectomy History of hysteroscopy History of cardiac radiofrequency ablation History of lumpectomy of right breast History of bilateral oophorectomy (~2019) Family History (Updated 09/18/21 @ 15:01 by Gloria Wang PA-C) Sister Lung cancer, Onset Age: 57 Maternal Grandfather Lung cancer Maternal Uncle Lung cancer Social History Patient Tobacco Use Status: Current everyday Tobacco user Tobacco use type: Cigarette Cigarettes Per Day: 12 Years Smoked: (onset 15, x 40yrs, max 2ppd, mainly 1/2-3/4ppd - 30pyh) Review of Systems Const Denies chills, Denies fatigue, Denies fever(s), Denies weight gain and Reports weight loss Eyes Denies dry eyes, Denies irritation and Denies itchy eyes ENT Reports Normal hearing present and Denies dizziness Card Denies chest pain, Denies leg edema, Denies lightheadedness, Denies palpitations, Reports dyspnea, Reports dyspnea on exertion, Denies orthopnea and Denies other Resp Reports cough, Reports excessive phlegm production, Reports dyspnea, Reports dyspnea on exertion and Reports wheezing GI Denies hematochezia and Denies change in stool character Reports as per HPI Musc Denies abnormal gait, Denies muscle weakness, Denies numbness, Denies radiating pain into limb and Denies tingling Neuro Reports Normal hearing present, Denies abnormal gait, Denies dizziness, Denies numbness and Denies tingling Endo Denies fatigue and Denies palpitations Magdaleno/Lymph Denies lymphadenopathy Aller/Immun Denies itchy eyes, Denies seasonal rhinorrhea and Reports wheezing Physical Exam Vital Signs: Last Vital Signs Pulse 96 11/01/24 13:53 BP 100/54 L 11/01/24 13:53 Pulse Ox 93 11/01/24 13:53 Oxygen Delivery Method Room Air 11/01/24 13:53 BMI result Body Mass Index 17.1 Const General: alert Neck Neck: Yes normal visual inspection, Yes full ROM and Yes no lymphadenopathy Chest Chest palpation & inspection: normal inspection of the chest Resp Effort & Inspection: normal respiratory effort Auscultation: no rhonchi, wheezes and diminished lung sounds Cardio Rate: regular rate Rhythm: regular rhythm Heart sounds: S1 normal heart sound present and S2 normal heart sound present GI Palpation (GI): Soft to palpation and nontender Auscultation: normal bowel sounds Skin General skin exam: rashes and/or lesions noted Neuro Cranial nerves: Yes Normal hearing present Extrem General: No cyanosis and No edema Office Procedures 6 Minute Walk Time:: 23:01 SPO2 % at rest: 92 Pulse at rest: 78 SPO2 % during excercise: 88 Pulse during excercise: 98 Distance in yards walked: 200 Gaurav Score: 7 Supplemental Oxygen: desaturated to 88% RA with activity, placed on 2l/pulse keeping pox 94% with activity [address] - 6 Minute Walk Office Meds methylprednisolone sod suc(PF) 125 mg/2 mL solution for injection Performing Provider: Luis Cloud MD Performing Location: [facility] Administered by: Estela Batista LPN on 11/01/24 14:31 Dose Route Admin Location Dispensed Lot Number Expiration Date [place] Trial Attorney 125 mg IM 1 ea [id number] 08/13/25 7373-0559-00 [employer] Total Dispensed Waste 1 ea 0 % Assessment & Plan Assessment & Plan (1) Asthma-COPD overlap syndrome: Code(s): J44.9 - Chronic obstructive pulmonary disease, unspecified Category: Medical (2) Pulmonary nodules: Code(s): R91.8 - Other nonspecific abnormal finding of lung field Category: Medical (3) Bladder cancer: Code(s): C67.9 - Malignant neoplasm of bladder, unspecified Category: Medical Qualifiers: Bladder location: unspecified site Qualified Code(s): C67.9 - Malignant neoplasm of bladder, unspecified (4) Nicotine dependence, cigarettes, uncomplicated: Comment: (onset 15yo, x 40yrs, mainly 1/2-3/4ppd, max 2ppd for 7yr - 30pyh, +fam hx lung ca) Code(s): F17.210 - Nicotine dependence, cigarettes, uncomplicated Category: Medical (5) Pneumonitis: Code(s): J98.4 - Other disorders of lung Category: Medical Plan Solumdrol->prednisone taper restart Azithromycin MWF ok to hold BUdesonide for now, but may start once prednisone is less than 20mg daily start POC 2l/pulse with activity and 2L/min while sleeping ([employer]) continue Trelegy inhaler SOHAIL as needed Nebulizer with albuterol as needed Tobacco cessation: nicotine patch Trazodone for sleep [place] [facility] 2 [place] Orders: Orders AMB Methylprednisolone Sod Succ Injection Today J44.1 - Chronic obstructive pulmonary disease with (acute) exacerbation Medications: New prednisone PO daily; Take 6 tabs daily x 3 days, then 5 tabs x 3 days, then 4 tabs x 3 days, then 3 tabs x 3 days, then 2 tabs daily x 3 days, then 1 tab x 3 days to complete. 63 tabs 0RF 18 days Refilled azithromycin Take 1 tablet on Tuesday/Tuesday/Tuesday 250 mg PO 3XW 12 tabs 6RF 28 days K21.9 - Gastro-esophageal reflux disease without esophagitis Coding Level of Care Code Est Pt Level 5 (17227) Diagnoses Asthma-COPD overlap syndrome J44.9 Pulmonary nodules R91.8 Malignant neoplasm of urinary bladder, unspecified site C67.9 Bladder location: unspecified site Nicotine dependence, cigarettes, uncomplicated F17.210 Pneumonitis J98.4 CPT Codes Coding ([id number]) Time Spent (min) 50
--- OUTSIDE RECORDS SUMMARY | 2024-11-01 15:05 | XMS_ITS | Clinical Summary ---
Author Organization [facility] Address [address] [place] [address] Care Team Providers Care Quill Picking Machine Operator Name Role Phone Tobi Griffith MD Primary Care Provider [phone] Surgical History Surgery Date Site/Laterality Comments OTHER [...] Influencers of Health Screening 04/18/2022 Influenza Vaccine (Season Ended) 2025 03/07/20 15 HIB Vaccines Aged Out No longer eligi [...] age to complete this topic Meningococcal B Vaccine Aged Out No l onger eligible based on patient's age to complete this topic RSV Immunization Patients Un silverio 20 months Aged Out No longer eligible b ased on patient's age to complete this topic Varicella Vaccines Aged Out No longer eligible based on patient's age to complete this topic Care Teams Quill Picking Machine Operator Relationship Specialty Start Date End Date Tobi Griffith MD [address] [place] [phone] PCP - General 07/31/14
[2024-11-01 22:59] VITALS: PULSE 78; O2SAT 92
== END 2024-11-01 14:36 | disposition home or self-care (01) ==
PROVIDERS: PCP Internal Medicine; Visit Provider Hospitalist
DX: J44.1 Chronic obstructive pulmonary disease with (acute) exacerbation (principal)

== ENCOUNTER → 2024-11-01 13:50 | Outpatient (BNVA) | payer BC, SELFPAY | PROVIDERS: PCP Internal Medicine; Visit Provider Hospitalist | DX: J44.1 Chronic obstructive pulmonary disease with (acute) exacerbation (principal); J98.4 Other disorders of lung; R91.8 Other nonspecific abnormal finding of lung field; C67.9 Malignant neoplasm of bladder, unspecified; F17.210 Nicotine dependence, cigarettes, uncomplicated; Z80.1 Family history of malignant neoplasm of trachea, bronchus and lung | CPT/HCPCS: 94618; 96372; J2919 ==

== ENCOUNTER 2024-12-25 09:14 | Outpatient (AMB) | payer BC, SELFPAY ==
--- NOTE | 2024-12-25 09:16 | MHC.OFFVIS ---
Vital Signs 12/25/24 09:20 Height 5 ft 2 in Weight 100 lb 4.965 oz BMI 18.3 BP 116/60 Blood Pressure Location Lt brachial Position Sitting Pulse 75 Pulse Source Pulse Oximeter Pulse Oximetry (%) 94 Oxygen Delivery Method Room Air Intake Visit Reasons: COPD Endodontics Dentist Required: No Accompanied by: Self / Same As Patient Allergies diazepam (From Valium) Allergy (Severe, Verified 12/25/24 09:23) Hallucinations HPI Comments Details: The patient is a 59-year-old woman current smoker with a history of breast cancer many years ago and also family history positive for lung cancer. The patient is developing worsening cough and shortness of breath. She has been on Trelegy inhaler with partial improvement of the symptoms. She does have a productive cough. Moderate severity. She feels the albuterol is not working. On further questioning she does states that she had asthma as a child. Patient also had allergies. Will assess for a potential asthma phenotype which may respond better to that therapy. However, she understands that she also needs to quit smoking. Will go ahead and refer her to the lung cancer screening program. The patient is interested in quitting however she knows she is going to be very hard for her. She has had bad reactions to medications in the past. This point the patient is willing to start bupropion in addition to starting any controller inhaler hopefully this covered in order for her to provide herself with some nicotine supplementation. Will continue to monitor closely. Will have her undergo pulmonary function studies them follow-up with her after that. 03/07/2023 the patient is here for pulmonary follow-up visit. Overall patient is doing a little better. Continues use the Trelegy daily. She is back on the azithromycin 3 times a week for chronic bronchitis. Still has some shortness of breath and congestion. Moderate severity. The respiratory therapy has been helpful. She is still struggling with smoking. She is on Chantix. She is trying to cut down further. We did review her recent PFTs. It looks like she still has moderate to severe obstruction. When compared to 2021 there is some tried improvements in both the FEV1 and also decreasing her surgery volumes are less air trapping which is reassuring. 06/08/2023 the patient is here for a pulmonary follow-up visit. She has had worsening respiratory symptoms for the last few weeks. She had a viral syndrome and after that she started developing a productive cough. She continues on the azithromycin but does not seem to be very helpful. She is also noticed increased wheezing. She has been using her respiratory inhalers more often. The patient unfortunately continues to smoke cigarettes. She was not Chantix but she has been on and off. We talked about the importance for her to quit smoking altogether. In addition to that she is participating in the lung cancer screening program. Next CT scans going to be sometime in the spring. If the patient is no better she will call the office for further evaluation likely and chest x-ray. 10/19/2023 the patient is here for a pulmonary follow-up visit. The patient has been struggling with cough and shortness breath. Seems to be getting worse. She has been on a course of doxycycline and had been on azithromycin before. She does have chronic bronchitis due to her COPD. Moderate severity. She did have a lung cancer screening program CT scan. I did review with her seems that the nodules are stable although she does have extensive emphysema. The patient still smoking however. She is on Chantix and is helping partially. Still smoking a half a pack a day. Her also smokes that makes it very hard for her to quit altogether. She is struggling work because she has missing a lot of work because of respiratory symptoms. I did fill out her [facility] papers. 04/25/2024 the patient is here for she was diagnosed with bladder cancer. She does have a port now will start chemotherapy. Hopefully she can get course of chemotherapy and then have surgery. In the meantime she did have a CT scan of the chest done at [facility] in 05/04/2024. She did bring a copy. I did review with her. . The images were also reviewed. I did compare the images to the once the CT scan she had in 10/03/2023 here. The pulmonary nodules appear to be stable when compared to 2023. She does have moderate degree of emphysema. Also has some evidence of bronchitis and areas of atelectasis. She has developing worsening cough chest congestion. Will go ahead and switch over to doxy for 10-14 days to treat her for bronchitis. If she is no better she will call for further evaluation. She continue with the Trelegy inhaler. She is working on cutting down her smoking. Hopeful that she can quit completely. 05/25/2024 the patient is here for a pulmonary sick visit. Apparently she started developing worsening cough. Congested in nature. Also complaining of some back discomfort especially when coughing. It was initially pendant got a little better. [id number]-[id number] severity. She is congested. No significant crackles on exam. Right now she continues on chemotherapy. Once she completes her chemotherapy she is going to be reassess and likely will have surgery sometime in August. She will continue her respiratory therapy. Will place her on Augmentin. She is going to monitor closely the back discomfort. If it gets worse she will call. She recently had imaging studies in April so will hold off on additional imaging studies unless she does not respond to the Augmentin. Otherwise follow-up in August before surgery. She has any issues again she will call the office. 08/16/2024 the patient is here for a pulmonary follow-up visit. Since we spoke she did go to [place] to get her bladder cancer surgery. She did have a urostomy placed. After she was discharged the patient had to go back to the hospital with a small-bowel obstruction apparently. She did improve with conservative measures and she was able to be discharged. She had been without any cigarette smoking for a couple weeks. Unfortunately when she came back she started up again. She wants to try the nicotine patch. I will send to pharmacy. 11/01/2024 the patient is here for sick visit. Apparently she started the Keytruda after her having the bladder cancer. Although she started developing adverse effects to the Keytruda and she had to stop it. She developed thyroiditis and also develop worsening respiratory symptoms. She did have a CTA at [facility] which I personally reviewed. Does have extensive emphysema some small pulmonary nodules but also some ground-glass opacities in the bases suggesting pneumonitis likely from the PDL1 inhibitor. Therefore she is going to stop it altogether. She did have reassuring PET scan and now with a CTA demonstrating no evidence of any malignancy anywhere. So therefore she will talk to her doctors in [place] but for now she is going to hold off on any type of immune therapy. Therefore, will go ahead and put some Solu-Medrol to decrease the inflammation of the lungs. After that she can go on prednisone. She is also complaining of mucus production typically clear in color. She has responded well to azithromycin in the past which is a good anti-inflammatory medication as well. Therefore will start her on azithromycin 3 times a week at least for the next few weeks. During the office visit the patient did have a walking oximetry she did desaturate down to 88% with activity. She was placed on 2 L pulse improving her pulse ox to 94% on 2 L pulse with activity. Therefore she will be started on a POC for activity. I do encourage her to use it 2 L at nighttime as well. Will go ahead and set her up with a local [employer] company at this time. I also feel that her placard card and will come back in 4 to 6 weeks to reassess. 12/25/2024 the patient is here for pulmonary follow-up visit. The patient overall has been doing okay. She has been off the PDL1 inhibitor because of her significant adverse effects. 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 [place] to be related to the PDL1 inhibitor. Now she is on thyroid supplementation and feeling a lot better. Unfortunately, the patient was told that she likely has some cancer activity in the blood. Therefore was recommended she go back on the PD-L1. I did recommend she continue the budesonide twice a day once she starts the Keytruda to minimize on the significant pneumonitis. She also has the oxygen now. If there are other alternatives that she consider it as well. She continues on the azithromycin although she is coughing more. Will switch over to doxycycline for. To help her with chest congestion at this time as well. She will follow-up with serial CAT scans of the belly to follow-up with the bladder cancer. Her last CT scan of the chest was back in October 2024 demonstrating no evidence of any acute disease. Will plan to follow-up in 3-4 months if she has any issues prior to this she will call for an earlier assessment. [facility] Medical History (Updated 12/25/24 @ 22:12 by Luis Cloud MD) Pneumonitis Bladder cancer History of breast cancer Asthma-COPD overlap syndrome Pulmonary nodules Nicotine dependence, cigarettes, uncomplicated Surgical History (Updated 09/18/21 @ 14:53 by Gloria Wang PA-C) History of tonsillectomy History of hysteroscopy History of cardiac radiofrequency ablation History of lumpectomy of right breast History of bilateral oophorectomy (~2019) Family History (Updated 09/18/21 @ 15:01 by Gloria Wang PA-C) Sister Lung cancer, Onset Age: 57 Maternal Grandfather Lung cancer Maternal Uncle Lung cancer Social History Patient Tobacco Use Status: Current everyday Tobacco user Tobacco use type: Cigarette Cigarettes Per Day: 12 Years Smoked: (onset 15, x 40yrs, max 2ppd, mainly 1/2-3/4ppd - 30pyh) Review of Systems Const Denies chills, Denies fatigue, Denies fever(s), Denies weight gain and Reports weight loss Eyes Denies dry eyes, Denies irritation and Denies itchy eyes ENT Reports Normal hearing present and Denies dizziness Card Denies chest pain, Denies leg edema, Denies lightheadedness, Denies palpitations, Reports dyspnea on exertion, Denies orthopnea and Denies other Resp Reports chest congestion, Reports cough, Reports dyspnea on exertion and Denies wheezing GI Denies hematochezia and Denies change in stool character Reports as per HPI Musc Denies abnormal gait, Denies muscle weakness, Denies numbness, Denies radiating pain into limb and Denies tingling Neuro Reports Normal hearing present, Denies abnormal gait, Denies dizziness, Denies numbness and Denies tingling Endo Denies fatigue and Denies palpitations Magdaleno/Lymph Denies lymphadenopathy Aller/Immun Denies itchy eyes, Denies seasonal rhinorrhea and Denies wheezing Physical Exam Vital Signs: Last Vital Signs Pulse 75 12/25/24 09:20 BP 116/60 12/25/24 09:20 Pulse Ox 94 12/25/24 09:20 Oxygen Delivery Method Room Air 12/25/24 09:20 BMI result Body Mass Index 18.3 Const General: alert Neck Neck: Yes normal visual inspection, Yes full ROM and Yes no lymphadenopathy Chest Chest palpation & inspection: normal inspection of the chest Resp Effort & Inspection: normal respiratory effort Auscultation: no rhonchi, no wheezes and diminished lung sounds Cardio Rate: regular rate Rhythm: regular rhythm Heart sounds: S1 normal heart sound present and S2 normal heart sound present GI Palpation (GI): Soft to palpation and nontender Auscultation: normal bowel sounds Skin General skin exam: rashes and/or lesions noted Neuro Cranial nerves: Yes Normal hearing present Extrem General: No cyanosis and No edema Assessment & Plan Assessment & Plan (1) Asthma-COPD overlap syndrome: Code(s): J44.9 - Chronic obstructive pulmonary disease, unspecified Category: Medical (2) Pulmonary nodules: Code(s): R91.8 - Other nonspecific abnormal finding of lung field Category: Medical (3) Bladder cancer: Code(s): C67.9 - Malignant neoplasm of bladder, unspecified Category: Medical Qualifiers: Bladder location: unspecified site Qualified Code(s): C67.9 - Malignant neoplasm of bladder, unspecified (4) Nicotine dependence, cigarettes, uncomplicated: Comment: (onset 15yo, x 40yrs, mainly 1/2-3/4ppd, max 2ppd for 7yr - 30pyh, +fam hx lung ca) Code(s): F17.210 - Nicotine dependence, cigarettes, uncomplicated Category: Medical (5) 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 Code(s): J98.4 - Other disorders of lung Category: Medical Plan Azithromycin MWF->doxy x 14 days BUdesonide daily_>BID if restart Ketruda POC 2l/pulse with activity and 2L/min while sleeping ([employer]) continue Trelegy inhaler SOHAIL as needed Nebulizer with albuterol as needed Tobacco cessation: chantix Trazodone for sleep lung cancer screening program through [facility] going back on PDL1 inhibitor follow-up in 3-4 months Medications: New doxycycline monohydrate 100 mg PO BID 28 tabs 0RF 14 days Refilled fluticasone propionate 50 mcg/actuation 2 sprays intranasal DAILY 48 mL 3RF Coding Level of Care Code Est Pt Level 4 (82523) Complex EM visit Add On G2211 Diagnoses Asthma-COPD overlap syndrome J44.9 Pulmonary nodules R91.8 Malignant neoplasm of urinary bladder, unspecified site C67.9 Bladder location: unspecified site Nicotine dependence, cigarettes, uncomplicated F17.210 Pneumonitis J98.4 Time Spent (min) 17
[2024-12-25 09:20] VITALS: BP 116/60; PULSE 75; O2SAT 94; BMI 18.3
--- OUTSIDE RECORDS SUMMARY | 2024-12-25 09:48 | XMS_ITS | Encounter Summary ---
Author Organization [facility] Address [address] [place] [address] Care Team Providers Care Production Operations Engineer Name Role Phone Tobi Griffith MD Primary Care Provider Unava ilable Reason for Referral * Specialist (Routine) - Authorized/Booked Specialty Diagnoses / Procedures Referred By Contac t Referred To Contact Cardiology Diagnoses PSVT (paroxysmal supraventricular tachycardia) (HCC) Shortened [place] interval Procedures REFERRAL TO CARDIOLOGY Alexandro Gonzalez MD [address] [place] [id number] External Cardiology Referral ID Status Reason Start Date Expiration Date V isits Requested Visits Authorized SEE REVIEW 08/26/14 Authorized/ Booked 08/14/2014 11/25/2014 1 1 Encounter Details Date Type Department Care Team Description 08/14/2014 Orders Only Cardiology - [address] [address] Alexandro Gonzalez MD PSVT (paroxysmal supraventricular tachycardia) (Primary Dx); Shortened [place] interval Social History Tobacco Use Types Packs/Day [...] tachycardia) (HCC)- Primary Paroxysmal supraventricular tachycardia [place]ened [place] interval Nonspecific abnormal electrocardiogram (ECG) (EKG) documented in this encounter Care Teams Production Operations Engineer Relationship Specialty Start Date End Date Tobi Griffith MD PCP - General 07/31/14 documented as of this encounter
--- OUTSIDE RECORDS SUMMARY | 2024-12-25 09:48 | XMS_ITS | Clinical Summary ---
Author Organization [facility] Address [address] [place] [address] Care Team Providers Care Abalone Fisherman Name Role Phone Tobi Griffith MD Primary Care Provider [phone] Surgical History Surgery Date Site/Laterality Comments OTHER [...] Last Done Comments Breast Cancer Screening 1965 DTaP,Tdap,and Td Vaccines (1 - Tdap) 12/12/1986 Hepatitis B Vaccines (1 of 3 - 19+ 3-dose series) 12/12/1986 Pneumococcal Vaccine: 50+ Ye ars (1 of 2 - PCV) 12/12/1986 Cervical Cancer Screening: P ap Smear 12/12/1988 Zoster Vaccines (1 of 2) 12/12/2017 Colorectal Cancer Screening: Colonoscopy 04/18/2022 HIV Screening 04/18/2022 Hepatitis C Screening 04/18/2022 Social Influencers of Health Screening 04/18/2022 COVID-19 Vaccine (1 - 2023-2 5 season) 2024 Depression Screening 05/16/2024 Influenza Vaccine (#1) 2025 03/07/2015 HIB Vaccines Aged Out No longer [...] age to complete this topic Care Teams Abalone Fisherman Relationship Specialty Start Date End Date Tobi Griffith MD [address] [place] [phone] PCP - General 07/31/14
--- OUTSIDE RECORDS SUMMARY | 2024-12-25 09:48 | XMS_ITS | Encounter Summary ---
Author Organization [facility] Address [address] [place] [id number] Phone Care Team Providers Care Shoe Stamper Name Role Phone Tobi Griffith MD Primary Care Provider Jono Hoskins MD Unavailable [phone] James Almonte MD Unavailable [phone] Brigido Sloan MD, PhD Unavailable Encounter Details Date Type Department Care Team (Late st Contact Info) Description 08/02/[address] [facility] Radiology [address] [place] [address] Social History Tobacco Use Types Packs/Day Years Used Date Smoking Tobacco: Every Day Cigarettes 1 30.8 Started: 03/13/1994 Smokeless Tobacco: Never Alcohol Use Standard Drinks/Week Comments Yes 0 (1 standard drink = 0.6 oz pure alcohol) Social drinker - 1-2 glasses wine a few times per year Child or Family Care Answer Date Record ed Do you have problems with on e of the following making it difficult for you to work, study, or receive health care? Family care (i.e. spouse, parents, other family) 03/09/2024 Education Answer Date Recorded Are you interested in help w ith more adult education (for example, completing high school, GED, job training, learning the [place]istan[place] language, technical skills, or developing parenting skills)? No 03/09/2024 Are you concerned about learning? Not on file 03/09/2024 No 03/09/2024 Yes 03/09/2024 Food Answer Date Recorded Within the past 6 months we worried whether our food would run out before we got money to buy more. Never True 07/23/2024 Within the past 6 months the food we bought just didn't last and we didn't have enough money to get more. Never True Residential Stability Answer Date Recor ded What is your housing situation today? I have anil sing 07/23/2024 How many times have you move d in the past 12 months? Zero (I did not move) 07/23/2024 Paying for Meds Answer Date Recorded Do you have trouble paying for medicines? Yes 07/23/2024 Paying Utility Bills Answer Date Record ed Do you have trouble paying your heating or elect ricity bill? No 07/23/2024 Transportation Answer Date Recorded Has the lack of transportati on kept you from medical appointments or from getting medications? No 07/23/2024 Digital Access Answer Date Recorded No 07/23/2024 Yes 07/23/2024 Do you have reliable internet access at home? Ye s 07/23/2024 Do you have a device (e.g., phone, tablet, computer) with a working camera? Yes 07/23/2024 Intimate Partner Violence Answer Date R ecorded Are you denied basic needs s uch as food, clothing, or medical care? No 08/02/2024 In the past 12 months have y ou been in a relationship with a person who hurts, threatens, or tries to control you? No 08/02/2024 Are you denied basic needs s uch as food, clothing, or medical care? No 08/02/2024 In the past 12 months have y ou been in a relationship with a person who hurts, threatens, or tries to control you? No 08/02/2024 Comments No Sex and Gender Information Value Date Recorded Sex Assigned at Not on file Legal Sex Female 2:08 PM EDT Gender Identity Not on file Sexual Orientation Not on file documented as of this encounter Functional Status * Calculated C-SSRS Risk Score (Lifetime/Recent) Answer Date of Assessment Author No Risk Indicated 08/02/2024 2:46 AM EDT Filomena bloom, Ness Yeung RN * Noble Suicide Severity Rating Scale (Screener/Recent Self-Report) Question Answer Date of Assessment Author 1. Wish to be (Past 1 Month) No 08/02/2024 2:46 AM EDT Ness Del Rosario RN 2. Non-Specific Active Suicidal Thoughts (Past 1 Month) No 08/02/2024 2:46 AM EDT Ness Del Rosario RN 6. Suicidal Behavior (Lifetime) No 08/02/2024 2:46 AM EDT Ness Del Rosario RN documented as of this encounter Plan of Treatment Upcoming Encounters Date Type Department Care Team (Late st Contact Info) Description 05/07/2025 1:40 PM EST Office Visit [facility] Urology [address] [facility] [address] [place] [address] James Almonte MD [address] [place] [id number] [email or web address] documented as of this encounter Visit Diagnoses Not on filedocumented in this encounter Additional Health Concerns Infection Onset Date Last Indicated Resolved Time CDiff-Risk 08/13/2024 08/13/2024 08/13/2024 2:54 PM EDT documented as of this encounter Care Teams Shoe Stamper Relationship Specialty Start Date End Date Tobi Griffith MD [address] [place] [address] PCP - General Internal Medicine 02/28/24 Jono Hoskins MD [address] [place] [id number] Urology 02/28/24 James Almonte MD [address] [place] [id number] [email or web address] 02/28/24 Brigido Sloan MD, PhD [address] [place] [id number] [email or web address] 02/28/24 documented as of this encounter Additional Source Comments The information contained in this document represents components of the legal health record. It is not the complete legal health record.[facility]
== END 2024-12-25 09:50 | disposition home or self-care (01) ==
PROVIDERS: PCP Internal Medicine; Visit Provider Hospitalist
DX: J44.9 Chronic obstructive pulmonary disease, unspecified (principal); R91.8 Other nonspecific abnormal finding of lung field; C67.9 Malignant neoplasm of bladder, unspecified; F17.210 Nicotine dependence, cigarettes, uncomplicated; J98.4 Other disorders of lung
CPT/HCPCS: 99214

== ENCOUNTER 2025-04-03 09:48 | Outpatient (AMB) | payer BC, SELFPAY ==
--- OUTSIDE RECORDS SUMMARY | 2025-04-02 23:59 | XMS_ITS | Continuity of Care Document ---
Author Organization [facility] Address [address] [place] [address]- Care Team Providers Care Human Resource Professional Name Role Phone Gladis RAMÍREZ, Tobi Puckett Primary Care Physician Encounter [facility] NBR [id number] Date(s): 03/03/25 - 04/02/25 [facility] [address] [place] [id number] Encounter Type: Triage Allergies, Adverse Reactions, Alerts Substance Criticality Severity Reaction Reaction Severity Status Valium with high doses(10mgs)-agitation Active Medications albuterol-ipratropium 3 mg-0.5 mg/3 ml inhalation solution 3 mL, BAND Nebulizer, 3 times a day, PRN Wheezing/Shortness of Breath, # 90 mL, 0 Refills, Maintenance, 11/15/24 11:46:00 AM EDT, Inhalation Solution, [facility], Partial fill upon patient request if the prescription is for a schedule II opioid drug., 3 mL BAND Nebulizer 3 times a day,x5 days,PRN:Wheezing/Shortness of Breath, 154.94, cm, 11/15/24 6:12:00 EDT, Height, 43.3, kg, 11/14/24 4:12:00 EDT, Dry Weight Start Date: 11/15/24 Stop Date: 11/20/24 Status: Ordered Medication Dispense Status: Completed Quantity: 90.0 Unit: mL Total Allowed Fills: 1 Fills Dispensed: 0 anastrozole 1 mg oral tablet 1 tablet = 1 mg, By Mouth, Daily, # 90 tablet, 3 Refills, Maintenance, 04/03/24 11:32:00 AM EST, Tablet, [id number], Partial fill upon patient request if the prescription is for a schedule IIopioid drug., 155.2, cm, 04/03/24 10:43:00 EST, Height, 43.2, kg, 04/03/24 10:43:00 EST, Dry Weight Start Date: 04/03/24 Status: Ordered Medication Dispense Status: Completed Quantity: 90.0 Unit: tablet Total Allowed Fills: 4 Fills Dispensed: 0 levothyroxine 0.1 mg oral tablet 1 tablet = 100 mcg, By Mouth, Daily, # 90 tablet, 3 Refills, Maintenance, 02/27/25 11:13:00 AM EDT,Tablet, [id number], Partial fill upon patient request if the prescription is for a scheduleII opioid drug., 155, cm, 02/27/25 10:46:00 EDT, Height, 43.1, kg, 01/25/25 10:01:00 EDT, Dry Weight Start Date: 02/27/25 Status: Ordered Medication Dispense Status: Completed Quantity: 90.0 Unit: tablet Total Allowed Fills: 4 Fills Dispensed: 0 Trelegy Ellipta 200 mcg-62.5 mcg-25 mcg/inh inhalation powder 1 puffs, Inhalation, Daily, Maintenance, 01/08/24 8:24:00 AM EDT, Partial fill upon patient request if the prescription is for a schedule II opioid drug. Start Date: 01/08/24 Status: Ordered Medication Dispense Status: Completed Total Allowed Fills: 1 Fills Dispensed: 0 Problem List Condition Confirmation Course Effective Dates Status H ealth Status Informant Atrial fibrillation Confirmed Active COPD - Chronic obstructive pulmonary disease Confirmed Active Hypothyroidism Confirmed Active Breast cancer Confirmed Active Tobacco abuse Confirmed Active Underweight Confirmed Active Social History Social History Type Response Smoking Status 10 or more cigarette s (1/2 pack or more)/day in last 30 days; Interested in cessation: No; Patient wants NRT during admission No entered on: 05/07/24 Sex Sex Representation Female (finding) Patient Care team information Care Team Personnel Name: Ann Badillo Position: [facility] Onco RN Member Role: Primary Care Nurse Name: Marika Aiken RN Position: [facility] Onco RN Member Role: Primary Care Nurse Name: Nina Fan RN Position: S Onco RN Member Role: Primary Care Nurse Name: Mary Mcpherson MA Position: [facility] Onco RN Member Role: Primary Care Nurse Name: Sujey Sparrow RN Position: [facility] Onco RN Member Role: Primary Care Nurse Name: Mckenna Hunt RN Position: [facility] Onco RN Member Role: Primary Care Nurse Name: Deidre Pedroza RN Position: [facility] Onco RN Member Role: Primary Care Nurse Name: Claudette Waldron Position: [facility] Onco RN Member Role: Primary Care Nurse Name: Tobi Griffith MD Position: [facility] Physician - Primary Care Member Role: PCP Address: [address] [place] [address] Telecom: Name: Adam Quesada RN Position: [facility] Onco RN Member Role: Primary Care Nurse Name: Madison Freeman RN Position: S RN Member Role: Primary Care Nurse Care Team Related Persons Name: SUJEY BHATT Name: SOLA ALEXIS Name: MARK GARCIA Insurance Providers Guarantor name: ANGELA GARCIA Health Plan Information #: 1 Payer: [employer] [facility] Payer Identifier: NASEEM Member Number: [id number] Group Number: [id number] Subscriber Identifier: NA Relationship to Subscriber: spouse Coverage Type: NA Coverage Verification Date: NA Telecom: Address:
[2025-04-03 09:55] VITALS: BP 100/54; PULSE 90; O2SAT 93; BMI 17.5
--- NOTE | 2025-04-03 09:55 | A.OFFVIS_ITS ---
Vital Signs 04/03/25 09:55 Height 5 ft 2 in Weight 95 lb 14.417 oz BMI 17.5 BP 100/54 L Blood Pressure Location Lt brachial Position Sitting Pulse 90 Pulse Source Pulse Oximeter Pulse Oximetry (%) 93 Oxygen Delivery Method Room Air Intake Visit Reasons: COPD Wrapper Operator Required: No Accompanied by: Self / Same As Patient Allergies diazepam (From Valium) Allergy (Severe, Verified 04/03/25 09:56) Hallucinations HPI Comments Details: The patient is a 59-year-old woman current smoker with a history of breast cancer many years ago and also family history positive for lung cancer. The patient is developing worsening cough and shortness of breath. She has been on Trelegy inhaler with partial improvement of the symptoms. She does have a productive cough. Moderate severity. She feels the albuterol is not working. On further questioning she does states that she had asthma as a child. Patient also had allergies. Will assess for a potential asthma phenotype which may respond better to that therapy. However, she understands that she also needs to quit smoking. Will go ahead and refer her to the lung cancer screening program. The patient is interested in quitting however she knows she is going to be very hard for her. She has had bad reactions to medications in the past. This point the patient is willing to start bupropion in addition to starting any controller inhaler hopefully this covered in order for her to provide herself with some nicotine supplementation. Will continue to monitor closely. Will have her undergo pulmonary function studies them follow-up with her after that. 03/07/2023 the patient is here for pulmonary follow-up visit. Overall patient is doing a little better. Continues use the Trelegy daily. She is back on the azithromycin 3 times a week for chronic bronchitis. Still has some shortness of breath and congestion. Moderate severity. The respiratory therapy has been helpful. She is still struggling with smoking. She is on Chantix. She is trying to cut down further. We did review her recent PFTs. It looks like she still has moderate to severe obstruction. When compared to 2021 there is some tried improvements in both the FEV1 and also decreasing her surgery volumes are less air trapping which is reassuring. 06/08/2023 the patient is here for a pulmonary follow-up visit. She has had worsening respiratory symptoms for the last few weeks. She had a viral syndrome and after that she started developing a productive cough. She continues on the azithromycin but does not seem to be very helpful. She is also noticed increased wheezing. She has been using her respiratory inhalers more often. The patient unfortunately continues to smoke cigarettes. She was not Chantix but she has been on and off. We talked about the importance for her to quit smoking altogether. In addition to that she is participating in the lung cancer screening program. Next CT scans going to be sometime in the spring. If the patient is no better she will call the office for further evaluation likely and chest x-ray. 10/19/2023 the patient is here for a pulmonary follow-up visit. The patient has been struggling with cough and shortness breath. Seems to be getting worse. She has been on a course of doxycycline and had been on azithromycin before. She does have chronic bronchitis due to her COPD. Moderate severity. She did have a lung cancer screening program CT scan. I did review with her seems that the nodules are stable although she does have extensive emphysema. The patient still smoking however. She is on Chantix and is helping partially. Still smoking a half a pack a day. Her also smokes that makes it very hard for her to quit altogether. She is struggling work because she has missing a lot of work because of respiratory symptoms. I did fill out her [facility] papers. 04/25/2024 the patient is here for she was diagnosed with bladder cancer. She does have a port now will start chemotherapy. Hopefully she can get course of chemotherapy and then have surgery. In the meantime she did have a CT scan of the chest done at [facility] in 05/04/2024. She did bring a copy. I did review with her. . The images were also reviewed. I did compare the images to the once the CT scan she had in 10/03/2023 here. The pulmonary nodules appear to be stable when compared to 2023. She does have moderate degree of emphysema. Also has some evidence of bronchitis and areas of atelectasis. She has developing worsening cough chest congestion. Will go ahead and switch over to doxy for 10-14 days to treat her for bronchitis. If she is no better she will call for further evaluation. She continue with the Trelegy inhaler. She is working on cutting down her smoking. Hopeful that she can quit completely. 05/25/2024 the patient is here for a pulmonary sick visit. Apparently she started developing worsening cough. Congested in nature. Also complaining of some back discomfort especially when coughing. It was initially pendant got a little better. [id number] severity. She is congested. No significant crackles on exam. Right now she continues on chemotherapy. Once she completes her chemotherapy she is going to be reassess and likely will have surgery octavia etime in August. She will continue her respiratory therapy. Will place her on Augmentin. She is going to monitor closely the back discomfort. If it gets worse she will call. She recently had imaging studies in April so will hold off on additional imaging studies unless she does not respond to the Augmentin. Otherwise follow-up in August before surgery. She has any issues again she will call the office. 08/16/2024 the patient is here for a pulmonary follow-up visit. Since we spoke she did go to [place] to get her bladder cancer surgery. She did have a urostomy placed. After she was discharged the patient had to go back to the hospital with a small-bowel obstruction apparently. She did improve with conservative measures and she was able to be discharged. She had been without any cigarette smoking for a couple weeks. Unfortunately when she came back she started up again. She wants to try the nicotine patch. I will send to pharmacy. 11/01/2024 the patient is here for sick visit. Apparently she started the Keytruda after her having the bladder cancer. Although she started developing adverse effects to the Keytruda and she had to stop it. She developed thyroiditis and also develop worsening respiratory symptoms. She did have a CTA at [facility] which I personally reviewed. Does have extensive emphysema some small pulmonary nodules but also some ground-glass opacities in the bases suggesting pneumonitis likely from the PDL1 inhibitor. Therefore she is going to stop it altogether. She did have reassuring PET scan and now with a CTA demonstrating no evidence of any malignancy anywhere. So therefore she will talk to her doctors in [place] but for now she is going to hold off on any type of immune therapy. Therefore, will go ahead and put some Solu-Medrol to decrease the inflammation of the lungs. After that she can go on prednisone. She is also complaining of mucus production typically clear in color. She has responded well to azithromycin in the past which is a good anti-inflammatory medication as well. Therefore will start her on azithromycin 3 times a week at least for the next few weeks. During the office visit the patient did have a walking oximetry she did desaturate down to 88% with activity. She was placed on 2 L pulse improving her pulse ox to 94% on 2 L pulse with activity. Therefore she will be started on a POC for activity. I do encourage her to use it 2 L at nighttime as well. Will go ahead and set her up with a local [employer] company at this time. I also feel that her placard card and will come back in 4 to 6 weeks to reassess. 12/25/2024 the patient is here for pulmonary follow-up visit. The patient overall has been doing okay. She has been off the PDL1 inhibitor because of her significant adverse effects. 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 Jasper to be related to the PDL1 inhibitor. Now she is on thyroid supplementation and feeling a lot better. Unfortunately, the patient was told that she likely has some cancer activity in the blood. Therefore was recommended she go back on the PD-L1. I did recommend she continue the budesonide twice a day once she starts the Keytruda to minimize on the significant pneumonitis. She also has the oxygen now. If there are other alternatives that she consider it as well. She continu es on the azithromycin although she is coughing more. Will switch over to doxycycline for. To help her with chest congestion at this time as well. She will follow-up with serial CAT scans of the belly to follow-up with the bladder cancer. Her last CT scan of the chest was back in October 2024 demonstrating no evidence of any acute disease. Will plan to follow-up in 3-4 months if she has any issues prior to this she will call for an earlier assessment. 04/03/2025 the patient is here for pulmonary follow-up visit. She is doing well she is tolerating the immune therapy well. She is gaining weight which is reassuring. The patient did have a liquid biopsy in [place] and they did not not see any cancer in her blood which is reassuring. She is getting frequent CAT scans. Last CT scan of the chest and abdomen was about a week ago. I did review it and also compared to a CAT scan of the chest from November CAT scan. She has a small pulmonary nodules. In addition to that the patient does have some atelectasis. She also has a small kidney stone in the right kidney. She is going to follow-up with the surgeon about that. For now she did develop a cold and significant chest congestion. She had been on azithromycin 3 times a week. Prior to that she had required doxycycline we did not help much. Will try a course of Augmentin. The patient also unfortunately continues to smoke cigar ettes. She needs to quit cold turkey because she has tried multiple other alternatives in his not going to work. Will follow-up in 4-6 months if any issues arise she can always call further recommendations. [facility] Medical History (Updated 04/03/25 @ 17:35 by Luis Cloud MD) Pneumonitis Bladder cancer History of breast cancer Asthma-COPD overlap syndrome Pulmonary nodules Nicotine dependence, cigarettes, uncomplicated Surgical History (Updated 09/18/21 @ 14:53 by Gloria Wang PA-C) History of tonsillectomy History of hysteroscopy History of cardiac radiofrequency ablation History of lumpectomy of right breast History of bilateral oophorectomy (~2019) Family History (Updated 09/18/21 @ 15:01 by Gloria Wang PA-C) Sister Lung cancer, Onset Age: 57 Maternal Grandfather Lung cancer Maternal Uncle Lung cancer Social History Patient Tobacco Use Status: Current everyday Tobacco user Tobacco use type: Cigarette Cigarettes Per Day: 12 Years Smoked: (onset 15, x 40yrs, max 2ppd, mainly 1/2-3/4ppd - 30pyh) Review of Systems Const Denies chills, Denies fatigue, Denies fever(s), Denies weight gain and Reports weight loss Eyes Denies dry eyes, Denies irritation and Denies itchy eyes ENT Reports Normal hearing present and Denies dizziness Card Denies chest pain, Denies leg edema, Denies lightheadedness, Denies palpitations, Reports dyspnea on exertion, Denies orthopnea and Denies other Resp Reports chest congestion, Reports cough, Reports dyspnea on exertion and Denies wheezing GI Denies hematochezia and Denies change in stool character Reports as per HPI Musc Denies abnormal gait, Denies muscle weakness, Denies numbness, Denies radiating pain into limb and Denies tingling Neuro Reports Normal hearing present, Denies abnormal gait, Denies dizziness, Denies numbness and Denies tingling Endo Denies fatigue and Denies palpitations Magdaleno/Lymph Denies lymphadenopathy Aller/Immun Denies itchy eyes, Denies seasonal rhinorrhea and Denies wheezing Physical Exam Vital Signs: Last Vital Signs Pulse 90 04/03/25 09:55 BP 100/54 L 04/03/25 09:55 Pulse Ox 93 04/03/25 09:55 Oxygen Delivery Method Room Air 04/03/25 09:55 BMI result Body Mass Index 17.5 Const General: alert HEENT Head: Yes normocephalic Neck Neck: Yes normal visual inspection, Yes full ROM and Yes no lymphadenopathy Chest Chest palpation & inspection: normal inspection of the chest Resp Effort & Inspection: normal respiratory effort and Actively coughing Quality: productive Auscultation: no rhonchi, no wheezes and diminished lung sounds Cardio Rate: regular rate Rhythm: regular rhythm Heart sounds: S1 normal heart sound present and S2 normal heart sound present GI Palpation (GI): Soft to palpation and nontender Auscultation: normal bowel sounds Skin General skin exam: rashes and/or lesions noted Neuro Cranial nerves: Yes Normal hearing present Extrem General: No cyanosis and No edema Office Procedures Flu Questionnaire Does the patient have a severe egg allergy?: No Does the patient have severe life threatening allergies?: No Does the patient have a fever or illness today?: No Has the patient ever had Guillain-[place] Syndrome?: No Has the patient ever had any past reaction to a flu shot?: No Immunizations Fluarix [id number] (PF) 45 mcg (15 mcg x 3)/0.5 mL IM syringe Performing Provider: Luis Cloud MD Performing Location: [facility] Administered by: Marcelina Victoria LPN on 04/03/25 10:27 Dose Route Admin Location Dispensed Lot Number Expiration Date NDC Cloth Presser 0.5 mL IM Left Deltoid 0.5 mL [id number] 11/12/25 22897-886-87 [employer] VIS Given Date VIS Provided VIS Publication Date 04/03/25 Single Vaccine 24 Eligibility Eligibility Date Funding Source Not [facility] Eligible 04/03/25 Private Assessment & Plan Assessment & Plan (1) Asthma-COPD overlap syndrome: Code(s): J44.9 - Chronic obstructive pulmonary disease, unspecified Category: Medical (2) Pulmonary nodules: Code(s): R91.8 - Other nonspecific abnormal finding of lung field Category: Medical (3) Bladder cancer: Code(s): C67.9 - Malignant neoplasm of bladder, unspecified Category: Medical Qualifiers: Bladder location: unspecified site Qualified Code(s): C67.9 - Malignant neoplasm of bladder, unspecified (4) Nicotine dependence, cigarettes, uncomplicated: Comment: (onset 15yo, x 40yrs, mainly 1/2-3/4ppd, max 2ppd for 7yr - 30pyh, +fam hx lung ca) Code(s): F17.210 - Nicotine dependence, cigarettes, uncomplicated Category: Medical (5) 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 Code(s): J98.4 - Other disorders of lung Category: Medical (6) Bronchitis: Code(s): J40 - Bronchitis, not specified as acute or chronic Category: Medical Plan Azithromycin MWF Start Augmentin Prednisone only if worsens (need to avoid while on the PDL1 inhibitor) BUdesonide daily while on Ketruda POC 2l/pulse with activity and 2L/min while sleeping ([employer]) continue Trelegy inhaler SOHAIL as needed Nebulizer with albuterol as needed Tobacco cessation: chantix Trazodone for sleep lung cancer screening program through [facility] PDL1 inhibitor follow-up in 3-4 months Orders: Orders Influenza [id number] Immunization Today J44.9 - Chronic obstructive pulmonary disease, unspecified Medications: New amoxicillin-pot clavulanate 875-125 mg 1 tab PO BID 20 tabs 0RF 10 days prednisone PO daily; Take 2 tabs daily x 5 days, then 1 tablet daily x 5 days 15 tabs 0RF 10 days Coding Level of Care Code Est Pt Level 4 (09426) Complex EM visit Add On G2211 Diagnoses Asthma-COPD overlap syndrome J44.9 Pulmonary nodules R91.8 Malignant neoplasm of urinary bladder, unspecified site C67.9 Bladder location: unspecified site Nicotine dependence, cigarettes, uncomplicated F17.210 Pneumonitis J98.4 Bronchitis J40 Time Spent (min) 18
--- OUTSIDE RECORDS SUMMARY | 2025-04-03 18:11 | XMS_ITS | Encounter Summary ---
Author Organization [facility] Address [address] [place] [address] Phone Care Team Providers Care Pv Installer Tech Name Role Phone Tobi Griffith MD Primary Care Provider Jono Hoskins MD Unavailable [phone] James Almonte MD Unavailable [phone] Brigido Sloan MD, PhD Unavailable Encounter Details Date Type Department Care Team (Late st Contact Info) Description 08/02/2024 Procedure Pass [facility] Rad[facility] [address] [place] [address] Social History Tobacco Use Types Packs/Day Years Used Date Smoking Tobacco: Every Day Cigarettes 1 31.1 Started: 03/13/1994 Smokeless Tobacco: Never Alcohol Use [...] high school, GED, job training, learning the [place]an language, technical skills, or developing parenting skills)? [...] EDT Filomena bloom, Ness Yeung RN * [place] Suicide Severity Rating Scale (Screener/Recent Self-Report) Question Answer Date of Assessment Author 1. Wish to be (Past 1 Month) No 08/02/2024 2:46 AM EDT Ness Del Rosario, SALUD 2. Non-Specific Active Suicidal Thoughts (Past 1 Month) No 08/02/2024 2:46 AM EDT Ness Del Rosario RN 6. Suicidal Behavior (Lifetime) No 08/02/2024 2:46 AM EDT Ness Del Rosario RN documented as of this encounter Plan of Treatment Upcoming Encounters Date Type Department Care Team (Late st Contact Info) Description 05/07/2025 1:40 PM EST Office Visit [facility] Urology [address] [address] James Almonte MD [address] [place] [address] [email or web address] 05/07/2025 3:00 PM EST Office Visit [facility] General & GI Surgery [address] [address] Unknown, MD Arminda documented as of this encounter Visit Diagnoses Not on filedocumented in this encounter Additional Health Concerns Infection Onset Date Last Indicated Resolved Time CDiff-Risk 08/13/2024 08/13/2024 08/13/2024 2:54 PM EDT documented as of this encounter Care Teams Pv Installer Tech Relationship Specialty Start Date End Date Tobi Griffith MD [address] [place] [id number] PCP - General Internal Medicine 02/28/24 Jono Hoskins MD [address] [address] Urology 02/28/24 James Almonte MD [address] [place] [address] [email or web address] 02/28/24 Brigido Sloan MD, PhD [address] [place] [address] [email or web address] Medical Oncology 02/28/24 documented as of this encounter Additional Source Comments The information contained in this document represents components of the legal health record. It is not the complete legal health record.[facility]
--- OUTSIDE RECORDS SUMMARY | 2025-04-03 18:12 | XMS_ITS | Encounter Summary ---
Author Organization [facility] Address [address] [place] [address] Phone Care Team Providers Care Portable Machine Cutter Name Role Phone Tobi Griffith MD Primary Care Provider Jono Hoskins MD Unavailable [phone] James Almonte MD Unavailable [phone] Brigido Sloan MD, PhD Unavailable Encounter Details Date Type Department Care Team (Late st Contact Info) Description 07/23/2024 Procedure Pass BWF Periop 1st floor [address] [place] [address] Social History Tobacco Use Types Packs/Day Years [...] high school, GED, job training, learning the Amharic language, technical skills, or developing parenting skills)? [...] as food, clothing, or medical care? No 07/23/2024 In the past 12 months have y ou been in a relationship with a person who hurts, threatens, or tries to control you? No 07/23/2024 Are you denied basic needs s uch as food, clothing, or medical care? No 07/23/2024 In the past 12 months have y ou been in a relationship with a person who hurts, threatens, or tries to control you? No 07/23/2024 Comments No Sex and Gender Information Value Date Recorded Sex Assigned at Not on file Legal Sex Female 2:08 PM EDT Gender Identity Not on file Sexual Orientation Not on file documented as of this encounter Functional Status * Calculated C-SSRS Risk Score (Lifetime/Recent) Answer Date of Assessment Author No Risk Indicated 07/23/2024 8:00 PM EDT Gloria Wilkerson RN * [place] Suicide Severity Rating Scale (Screener/Recent Self-Report) Question Answer Date of Assessment Author 1. Wish to be (Past 1 Month) No 07/23/2024 8:00 PM EDT Gloria Wilkerson RN 2. Non-Specific Active Suicidal Thoughts (Past 1 Month) No 07/23/2024 8:00 PM EDT Gloria Wilkerson RN 6. Suicidal Behavior (Lifetime) No 07/23/2024 8:00 PM EDT Gloria Wilkerson RN documented as of this encounter Plan of Treatment Upcoming Encounters Date Type Department Care Team (Late st Contact Info) Description 05/07/2025 1:40 PM EST Office Visit [facility] Urology [address] [address] James Almonte MD 45 [place] [address] [email or web address] 05/07/2025 3:00 PM EST Office Visit [facility] General & GI Surgery [address] [address] Unknown, MD Arminda documented as of this encounter Visit Diagnoses Not on filedocumented in this encounter Additional Health Concerns Infection Onset Date Last Indicated Resolved Time CDiff-Risk 08/13/2024 08/13/2024 08/13/2024 2:54 PM EDT documented as of this encounter Care Teams Portable Machine Cutter Relationship Specialty Start Date End Date Tobi Griffith MD [address] [place] [phone] PCP - General Internal Medicine 02/28/24 Jono Hoskins MD [address] [address] Urology 02/28/24 James Almonte MD 45 [place] [address] [email or web address] Urology 02/28/24 Brigido Sloan MD, PhD [address] [place] [phone] [email or web address] Medical Oncology 02/28/24 documented as of this encounter Additional Source Comments The information contained in this document represents components of the legal health record. It is not the complete legal health record.[facility]
--- OUTSIDE RECORDS SUMMARY | 2025-04-03 18:12 | XMS_ITS | Encounter Summary ---
Author Organization [facility] Address [address] [place] [address] Phone Care Team Providers Care Principal Network Architect Name Role Phone Tobi Griffith MD Primary Care Provider Jono Hoskins MD Unavailable [phone] James Almonte MD Unavailable [phone] Brigido Sloan MD, PhD Unavailable Encounter Details Date Type Department Care Team (Late st Contact Info) Description 08/07/2024 Procedure Pass [facility] Radiology 75 [place] [address] Social History Tobacco Use Types Packs/Day Years [...] high school, GED, job training, learning the Iraqi language, technical skills, or developing parenting skills)? [...] Description 05/07/2025 1:40 PM EST Office Visit [facility] Urology 45 [facility] [address] [place] [address] James Almonte MD 45 [place] [address] [email or web address] 05/07/2025 3:00 PM EST Office Visit [facility] General & GI Surgery 75 [facility] [address] [place] [address] Unknown, Unknown, documented as of this encounter Visit Diagnoses Not on filedocumented in this encounter Additional Health Concerns Infection Onset Date Last Indicated Resolved Time CDiff-Risk 08/13/2024 08/13/2024 08/13/2024 2:54 PM EDT documented as of this encounter Care Teams Principal Network Architect Relationship Specialty Start Date End Date Tobi Griffith MD [address] [place] [address] PCP - General Internal Medicine 02/28/24 Jono Hoskins MD 100 [facility] [address] [place] [address] Urology 02/28/24 James Almonte MD 45 [place] [address] [email or web address] Urology 02/28/24 Brigido Sloan MD, PhD [address] [place] [phone] [email or web address] Medical Oncology 02/28/24 documented as of this encounter Additional Source Comments The information contained in this document represents components of the legal health record. It is not the complete legal health record.[facility]
--- OUTSIDE RECORDS SUMMARY | 2025-04-03 18:12 | XMS_ITS | Clinical Summary ---
Author Organization [facility] it Address [address] [place] [address] Care Team Providers Care Diamond Driller Helper Name Role Phone Tobi Griffith MD Primary Care Provider [phone] Surgical History Surgery Date Site/Laterality Comments OTHER [...] Last Done Comments Breast Cancer Screening 1967 Colorectal Cancer Screening: Colonoscopy 1967 DTaP,Tdap,and Td Vaccines (1 - Tdap) 12/12/1986 Hepatitis B Vaccines (1 of 3 - 19+ 3-dose series) 12/12/1986 Pneumococcal Vaccine: 50+ Ye ars (1 of 2 - PCV) 12/12/1986 Cervical Cancer Screening: P ap Smear 12/12/1988 RSV Immunization Adult Patie nts (1 - Risk 50-74 years 1-dose series) 12/12/2017 Zoster Vaccines (1 of 2) 12/12/2017 HIV Screening 04/18/2022 Hepatitis C Screening 04/18/2022 Social Influencers of Health Screening 04/18/2022 Depression Screening 05/16/2024 COVID-19 Vaccine (2024-2 6 season) 2025 Influenza Vaccine (#1) 2025 03/07/2015 HIB Vaccines [...] age to complete this topic Care Teams Diamond Driller Helper Relationship Specialty Start Date End Date Tobi Griffith MD [address] [place] [id number] PCP - General 07/31/14
--- OUTSIDE RECORDS SUMMARY | 2025-04-03 18:12 | XMS_ITS | Clinical Summary ---
Author Organization [facility] Address [address] [facility] [address] [place] [address] Phone Care Team Providers Care Assistant Producer Name Role Phone Tobi Griffith MD Primary Care Provider Jono Hoskins MD Unavailable [phone] James Almonte MD Unavailable [phone] Brigido Sloan MD, PhD Unavailable Allergies Active Allergy Reactions Criticality Noted Date Comments Diazepam 03/13/2024 with high doses(10mgs)-agitation Medications fluticasone-umecli din-vilanter (TRELEGY ELLIPTA) 200-62.5-25 mcg inhaler Inhale 1 puff into the lungs daily. 01/08/20 24 Active albuterol 90 mcg/actuation inhaler Inhale 2 puffs into the lungs every 6 (six) hours as needed. 02/28/20 24 Active acetaminophen (TYLENOL) 500 MG tablet Take 1,000 mg by mouth every 6 (six) hours as needed for pain (specific location in comments). Active anastrozole (ARIMIDEX) 1 mg tablet Take 1 mg by mouth daily. 04/03/20 24 Active ipratropium-albute roL (DUONEB) 0.5-3 mg (2.5 mg base)/3 mL nebulizer solution Take 3 mL by nebulization 2 (two) times a day as needed. 06/21/19 25 Active oxyCODONE 5 MG immediate release tablet Take 1 tablet (5 mg total) by mouth every 6 (six) hours as needed for pain (specific location in comments). Partial fill ok. For breakthrough pain, make sure to take non-narcotic options first. Do NOT drive or drink alcohol while taking this medication. 10 tablet 07/25/19 25 Active polyethylene glycol (MIRALAX) 17 gram packet Take 17 g by mouth daily as needed for other (free text field) (severe constipation). 14 packet 07/25/19 25 Active ondansetron (ZOFRAN-ODT) 4 MG disintegrating tabletIndications: Malignant neoplasm of urinary bladder, unspecified site Take 1 tablet (4 mg total) by mouth every 8 (eight) hours as needed for nausea. 10 tablet 07/31/19 25 Active docusate sodium (COLACE) 100 MG capsule Take 100 mg by mouth 2 (two) times a day as needed for mild constipation. Active nicotine (NICODERM CQ) 21 mg/[address] 1 patch onto the skin daily. Apply to a clean, dry, hairless site on the upper arm or hip. 08/14/19 25 Active apixaban (ELIQUIS) 2.5 mg Take 1 tablet (2.5 mg total) by mouth 2 (two) times a day for 15 days. 08/14/19 25 Active doxycycline hyclate (DORYX) 100 MG tablet Take 1 tablet by mouth 2 (two) times a day. 10/16/19 25 Active traZODone (DESYREL) 50 MG tablet TAKE 1 TABLET ORALLY BEDTIME NEEDED FOR SLEEP FOR 30 DAYS 08/17/19 25 Active Active Problems Problem Noted Date Diagnosed Date Small bowel obstruction 08/02/2024 Bladder cancer 07/23/2024 Tobacco use 09/06/2013 Heart palpitations 08/03/2013 Overview (07/09/2024): Was told be due to anxiety- given citalopram but not taken yet. Paroxysmal atrial fibrillation Overview (07/09/2024): s/p successful ablation 2015 Chronic obstructive pulmonary disease Loud snoring Overview (07/09/2024): no witnessed apnea Degenerative joint disease of spine Encounters Date Type Department Care Team Description 02/20/2025 8:00 AM EDT Office Visit [facility] General & GI Surgery [address] [address] Unknown, Arminda, Attention to urostomy (Primary Dx) 02/08/2025 Telephone [facility] General & GI Surgery [address] [address] Deidre Fontana, SALUD Stoma Complication 02/08/2025 Telephone [facility] General & GI Surgery [address] [address] Deidre Fontana, knot picker cloth Care from Last 3 Months Family History Medical History Relation Comments Lung cancer Maternal Uncle at his 60s COPD Mother Lung cancer Paternal Grandfather at 70s Lung cancer Paternal Grandmother Lung or hea rt Breast cancer Sister COPD Sister Lung cancer Sister 56 due to l brandon cancer Valvular heart disease Son Anesthesia problems Neg Hx Malig Hyperthermia Neg Hx Pseudochol deficiency Neg Hx Stroke Neg Hx Relation Status Comments Maternal Grandmother Maternal Uncle Mother Paternal Grandfather Paternal Grandmother Sister Son Alive Social History Tobacco Use Types Packs/Day Years Used Date Smoking Tobacco: Every Day Cigarettes 1 31.1 Started: 03/13/1994 Smokeless Tobacco: Never Tobacco Cessation:Ready to Q uit: Not Asked; Counseling Given: Not Answered Alcohol Use Standard Drinks/Week Comments Yes 0 [...] high school, GED, job training, learning the [place] language, technical skills, or developing parenting skills)? [...] your housing situation today? I have anil alvarado 07/23/2024 How many times have you move [...] on file Sexual Orientation Not on file Last Filed Vital Signs Vital Sign Reading Time Taken Comments Blood Pressure 119/56 10/26/2024 2:06 PM EDT Pulse 109 10/26/2024 2:06 PM EDT Temperature 36.9 C (98.4 F) 08/14/2024 7:47 AM EDT Respiratory Rate 18 08/14/2024 7:47 AM EDT Oxygen Saturation 95% 08/14/2024 7:47 AM EDT Inhaled Oxygen Concentration - - Weight 41.7 kg (91 lb 14.4 oz) 10/26/2024 2:06 P M EDT Height 154.9 cm (5' 1 ) 10/26/2024 2:06 PM EDT Body Mass Index 17.36 10/26/2024 2:06 PM EDT Plan of Treatment Upcoming Encounters Date Type Department Care Team ([facility] st Contact Info) Description 05/07/2025 1:40 PM EST Office Visit [facility] Urology [address] [address] James Almonte MD 45 [place] [address] [email or web address] 05/07/2025 3:00 PM EST Office Visit [facility] General & GI Surgery [address] [address] Unknown, Unknown, Health Maintenance Due Date Last Done Comments Adult Td,Tdap Booster 1965 LIPID PANEL 1967 DEPRESSION SCREENING 1979 HEPATITIS C SCREENING 12/12/1985 HIV ONE-TIME SCREENING (18-65 YEARS) 12/12/1985 ZOSTER VACCINES (1 of 2) 12/12/1986 PAP SMEAR 12/12/1988 MAMMOGRAM 2007 COLOGUARD 12/12/2012 COLONOSCOPY 12/12/2012 COLORECTAL CANCER SCREENING 12/12/2012 FIT TEST 12/12/2012 FOBT 12/12/2012 SIGMOIDOSCOPY 12/12/2012 VIRTUAL COLONOSCOPY 12/12/2012 LUNG CANCER SCREENING (LDCT Only) 12/12/2017 INFLUENZA VACCINE (#1) 2024 , 03/09/2023, 03/12/2021, Additional history exists COVID-19 VACCINE ( season) 2025 05/10/2023, 08/20/2020, 07/30/2020 SMOKING Hx and SMOKELESS TOBACCO SCREENING 10/26/2025 10/26/2024 PNEUMOCOCCAL VACCINES (50+ years) Completed 04/06/2024, 02/17/2019, 03/14/2018 RSV VACCINE Completed 12/26/2024 HEPATITIS A VACCINES Aged Out No long er eligible based on patient's age to complete this topic HIB VACCINES Aged Out No longer eligi ble based on patient's age to complete this topic MENINGOCOCCAL VACCINES (ACWY) Aged Out No longer eligible based on patient's age to complete this topic MENINGOCOCCAL VACCINES (B) Aged Out N o longer eligible based on patient's age to complete this topic Medical Devices Implanted Type Area Charge Hand Device Identifier Shelf Expiration Date Model / Serial / Lot Breast Insurance [facility] [employer] Advance Directives For more information, please contact: [phone] (9AM - 5PM [facility], Tuesday-Tuesday) * Full Code (Latest Code Status on File) Date Activated Date Inactivated Comments 07/23/2024 10:01 AM Question Answer Comments Code Status Confirmed With: Patient Care Teams Assistant Producer Relationship Specialty Start Date End Date Tobi Griffith MD [address] [place] [phone] PCP - General Internal Medicine 02/28/24 Jono Hoskins MD [address] [place] [address] Urology 02/28/24 James Almonte MD [address] [place] [phone] [email or web address] 02/28/24 Brigido Sloan MD, PhD [address] [place] [phone] [email or web address] Medical Oncology 02/28/24 Additional Source Comments The information contained in this document represents components of the legal health record. It is not the complete legal health record.[facility]
== END 2025-04-03 10:28 | disposition home or self-care (01) ==
LOC: HO.HPS 09:49
PROVIDERS: PCP Internal Medicine; Visit Provider Hospitalist
DX: J44.9 Chronic obstructive pulmonary disease, unspecified (principal); R91.8 Other nonspecific abnormal finding of lung field; C67.9 Malignant neoplasm of bladder, unspecified; F17.210 Nicotine dependence, cigarettes, uncomplicated; J98.4 Other disorders of lung; J40 Bronchitis, not specified as acute or chronic
CPT/HCPCS: 99214

== ENCOUNTER → 2025-04-03 09:48 | Outpatient (BNVA) | payer BC, SELFPAY | PROVIDERS: PCP Internal Medicine; Visit Provider Hospitalist | DX: Z23 Encounter for immunization (principal) | CPT/HCPCS: 90471; 90656 ==